=== PATIENT | male | born 1935 | race Caucasian/White ===

== ENCOUNTER → 2017-02-17 | Outpatient (CLI) | payer OTHER ==
[2017-02-17 17:52] LABS: BASO % 0.5 %; BASO ABS # 0.06 K/uL (0-0.2); COMPLETE YES; HEMATOCRIT 36.2 % (42-52); IG% 0.3 %; LYMPH % 17.7 %; LYMPH ABS # 1.98 K/uL (1.2-3.4); MEAN CELL VOLUME 95.3 fL (80-100); MEAN CORPUSCULAR HEMOGLOBIN 31.3 pg (25-34); MEAN CORPUSCULAR HGB CONC 32.9 g/dl (32-36); MONO % 7.9 %; NEUT % 69.6 %; PLATELET COUNT 172 K/uL (130-400); WHITE BLOOD COUNT 11.21 K/uL (4.8-10.8)
[2017-02-17 18:03] LABS: ALT/SGPT 15 U/L (12-78); BLOOD UREA NITROGEN 59 mg/dl (7-18); BUN/CREATININE RATIO 22.6 (10-20); CALCIUM 8.4 mg/dl (8.5-10.1); CARBON DIOXIDE 26 mmol/L (21-32); CHLORIDE 107 mmol/L (98-107); GLUCOSE 97 mg/dl (70-99); POTASSIUM 5.7 mmol/L (3.5-5.1); SODIUM 139 mmol/L (136-145)
[2017-02-17 18:06] LABS: ALKALINE PHOSPHATASE 133 U/L (45-117); AST/SGOT 19 U/L (15-37)
--- NOTE | 2017-02-25 09:21 | CODING QUERY MEDICAL NECESSITY ---
CQSUPPORTING DIAGNOSIS NEEDED A supporting diagnosis is required for the test/procedure performed on this patient in order for us to be reimbursed by the patient's insurance. Please provide a supporting diagnosis for the following test/procedure listed below next to the test name along with your signature. *If there is no additional diagnosis for this patient that would support the following test/procedure please document that below next to the test/procedure. Test(s)/Procedure(s) that require a supporting diagnosis: DOS 02/17/17 VITAMIN D TEST Provider Signature: Date: Thank you Nenita Haley Health Information Management Once completed, please kindly fax back to [phone] For questions please call [phone]
== END | disposition home or self-care (01) ==
LOC: C.LABPVFM 15:31
PROVIDERS: ATTEND Family Medicine
DX: R53.83 Other fatigue (principal); N28.9 Disorder of kidney and ureter, unspecified; E55.9 Vitamin D deficiency, unspecified

== ENCOUNTER → 2017-02-23 | Outpatient (CLI) | payer OTHER ==
--- NOTE | 2017-02-23 14:02 | DIAGNOSTIC IMAGING REPORT ---
ULTRASOUND KIDNEYS AND BLADDER CLINICAL HISTORY: Acute renal insufficiency. COMPARISON STUDY: Abdominal CT dated 05/22/2016. TECHNIQUE: Real-time, grayscale, and color flow sonography of the kidneys and bladder is performed. Images are reviewed in the transverse and longitudinal planes. FINDINGS: Kidneys: The kidneys are atrophic. The right kidney measures 9.6 cm in length and the left kidney measures 8.7 cm in length. There is no hydronephrosis. No shadowing renal calculi are identified. There are bilateral renal cysts. The largest is on the right and measures up to 3.5 cm. There is no sonographic evidence of contour deforming renal mass lesion. No perinephric fluid is identified. Bladder: The bladder is normal in appearance. Bilateral ureteral jets were seen. An abdominal aneurysm is identified and measures up to 5.5 cm. This is likely unchanged from the 05/22/2016 CT scan. IMPRESSION: 1. The kidneys are atrophic and without hydronephrosis. 2. The bladder is normal as visualized. 3. A 5.5 cm infrarenal abdominal aortic aneurysm is again noted. Electronically signed by: José Garner M.D. 02/23/2017 2:00 PM Dictated Date/Time: 02/23/2017 1:47 PM
== END | disposition home or self-care (01) ==
LOC: C.ULTR 13:11
PROVIDERS: ATTEND Family Medicine
DX: R79.89 Other specified abnormal findings of blood chemistry (principal); N26.1 Atrophy of kidney (terminal); I71.4 Abdominal aortic aneurysm, without rupture

== ENCOUNTER → 2017-04-23 | Outpatient (CLI) | payer OTHER ==
[2017-04-23 18:51] LABS: BLOOD UREA NITROGEN 36 mg/dl (7-18); BUN/CREATININE RATIO 18.2 (10-20); CALCIUM 8.7 mg/dl (8.5-10.1); CARBON DIOXIDE 23 mmol/L (21-32); CHLORIDE 112 mmol/L (98-107); GLUCOSE 106 mg/dl (70-99); MAGNESIUM 2.1 mg/dl (1.8-2.4); SODIUM 143 mmol/L (136-145)
[2017-04-23 18:52] LABS: PHOSPHORUS 3.2 mg/dl (2.5-4.9)
== END | disposition home or self-care (01) ==
LOC: C.LABPVFM 15:44
PROVIDERS: ATTEND Internal Medicine Nephrology
DX: N28.9 Disorder of kidney and ureter, unspecified (principal)

== ENCOUNTER → 2017-06-24 | Outpatient (CLI) | payer OTHER ==
[2017-06-24 13:35] LABS: BLOOD UREA NITROGEN 37 mg/dl (7-18); BUN/CREATININE RATIO 17.7 (10-20); CALCIUM 8.6 mg/dl (8.5-10.1); CARBON DIOXIDE 26 mmol/L (21-32); CHLORIDE 109 mmol/L (98-107); GLUCOSE 102 mg/dl (70-99); MAGNESIUM 2.2 mg/dl (1.8-2.4); POTASSIUM 4.7 mmol/L (3.5-5.1); SODIUM 140 mmol/L (136-145)
[2017-06-24 13:36] LABS: PHOSPHORUS 2.9 mg/dl (2.5-4.9)
== END | disposition home or self-care (01) ==
LOC: C.LAB1850 11:57
PROVIDERS: ATTEND Internal Medicine Nephrology
DX: I10 Essential (primary) hypertension (principal)

== ENCOUNTER → 2017-08-31 | Outpatient (CLI) | payer OTHER ==
[2017-08-31 14:12] LABS: ALB/GLOB RATIO 0.8 (0.9-2); ALKALINE PHOSPHATASE 136 U/L (45-117); ALT/SGPT 15 U/L (12-78); AST/SGOT 19 U/L (15-37); BLOOD UREA NITROGEN 44 mg/dl (7-18); CALCIUM 8.8 mg/dl (8.5-10.1); CARBON DIOXIDE 24 mmol/L (21-32); CHLORIDE 108 mmol/L (98-107); CREATININE 2.29 mg/dl (0.60-1.40); GLUCOSE 109 mg/dl (70-99); POTASSIUM 6.1 mmol/L (3.5-5.1); SODIUM 139 mmol/L (136-145)
== END | disposition home or self-care (01) ==
LOC: C.LABPVFM 09:04
PROVIDERS: ATTEND Family Medicine
DX: I71.4 Abdominal aortic aneurysm, without rupture (principal); I10 Essential (primary) hypertension; Z86.39 Personal history of other endocrine, nutritional and metabolic disease; E55.9 Vitamin D deficiency, unspecified; N18.4 Chronic kidney disease, stage 4 (severe)

== ENCOUNTER → 2017-09-02 | Outpatient (CLI) | payer OTHER ==
[2017-09-02 13:38] LABS: BLOOD UREA NITROGEN 44 mg/dl (7-18); BUN/CREATININE RATIO 17.8 (10-20); CARBON DIOXIDE 24 mmol/L (21-32); CHLORIDE 107 mmol/L (98-107); CREATININE 2.47 mg/dl (0.60-1.40); GLUCOSE 87 mg/dl (70-99); POTASSIUM 5.6 mmol/L (3.5-5.1); SODIUM 136 mmol/L (136-145)
== END | disposition home or self-care (01) ==
LOC: C.LABPVFM 11:28
PROVIDERS: ATTEND Internal Medicine Nephrology
DX: E87.5 Hyperkalemia (principal)

== ENCOUNTER → 2017-09-14 | Outpatient (CLI) | payer OTHER ==
[2017-09-14 13:15] LABS: BLOOD UREA NITROGEN 50 mg/dl (7-18); BUN/CREATININE RATIO 19.2 (10-20); CARBON DIOXIDE 24 mmol/L (21-32); CHLORIDE 108 mmol/L (98-107); CREATININE 2.62 mg/dl (0.60-1.40); GLUCOSE 145 mg/dl (70-99); POTASSIUM 4.7 mmol/L (3.5-5.1); SODIUM 138 mmol/L (136-145)
== END | disposition home or self-care (01) ==
LOC: C.LABPVFM 08:41
PROVIDERS: ATTEND Internal Medicine Nephrology
DX: I10 Essential (primary) hypertension (principal); E87.5 Hyperkalemia

== ENCOUNTER → 2017-10-13 | Outpatient (CLI) | payer OTHER ==
[2017-10-13 13:00] LABS: BASO % 0.8 %; BASO ABS # 0.07 K/uL (0-0.2); COMPLETE YES; HEMATOCRIT 38.6 % (42-52); IG% 0.5 %; LYMPH % 20.3 %; LYMPH ABS # 1.72 K/uL (1.2-3.4); MEAN CELL VOLUME 96.3 fL (80-100); MEAN CORPUSCULAR HEMOGLOBIN 30.9 pg (25-34); MEAN CORPUSCULAR HGB CONC 32.1 g/dl (32-36); MEAN PLATELET VOLUME 9.9 fL (7.4-10.4); MONO % 9.1 %; NEUT % 66.3 %; PLATELET COUNT 162 K/uL (130-400); RED BLOOD COUNT 4.01 M/uL (4.7-6.1); WHITE BLOOD COUNT 8.47 K/uL (4.8-10.8)
[2017-10-13 13:16] LABS: BLOOD UREA NITROGEN 35 mg/dl (7-18); BUN/CREATININE RATIO 15.6 (10-20); CALCIUM 8.7 mg/dl (8.5-10.1); CARBON DIOXIDE 27 mmol/L (21-32); CHLORIDE 106 mmol/L (98-107); CREATININE 2.26 mg/dl (0.60-1.40); GLUCOSE 122 mg/dl (70-99); MAGNESIUM 2.2 mg/dl (1.8-2.4); PHOSPHORUS 2.9 mg/dl (2.5-4.9); POTASSIUM 4.7 mmol/L (3.5-5.1); SODIUM 138 mmol/L (136-145)
== END | disposition home or self-care (01) ==
LOC: C.LABPVFM 10:00
PROVIDERS: ATTEND Internal Medicine Nephrology
DX: N18.4 Chronic kidney disease, stage 4 (severe) (principal)

== ENCOUNTER → 2017-10-16 | Outpatient (CLI) | payer OTHER ==
[2017-10-16 18:29] LABS: URINE PROTIEN/CREAT RATIO 0.3 (0-0.2); URINE TOTAL PROTEIN 35.4 mg/dl (0-11.9)
== END | disposition home or self-care (01) ==
LOC: C.LABPVFM 09:22
PROVIDERS: ATTEND Internal Medicine Nephrology
DX: N18.4 Chronic kidney disease, stage 4 (severe) (principal)

== ENCOUNTER → 2018-02-25 | Outpatient (CLI) | payer OTHER ==
[2018-02-25 12:29] LABS: BASO % 0.7 %; BASO ABS # 0.06 K/uL (0-0.2); EOS % 2.3 %; EOS ABS # 0.21 K/uL (0-0.5); HEMATOCRIT 41.6 % (42-52); HEMOGLOBIN 13.5 g/dL (14.0-18.0); IG# 0.04 K/uL (0.00-0.02); LYMPH % 22.2 %; LYMPH ABS # 2.03 K/uL (1.2-3.4); MEAN CELL VOLUME 94.1 fL (80-100); MEAN CORPUSCULAR HEMOGLOBIN 30.5 pg (25-34); MEAN CORPUSCULAR HGB CONC 32.5 g/dl (32-36); MONO ABS # 0.82 K/uL (0.11-0.59); NEUT % 65.4 %; NEUT ABS # 5.99 K/uL (1.4-6.5); PLATELET COUNT 199 K/uL (130-400); RED CELL DISTRIBUTION WIDTH CV 14.5 % (11.5-14.5); RED CELL DISTRIBUTION WIDTH SD 50.1 fL (36.4-46.3); WHITE BLOOD COUNT 9.15 K/uL (4.8-10.8)
[2018-02-25 18:12] LABS: ALBUMIN 3.7 gm/dl (3.4-5.0); BLOOD UREA NITROGEN 27 mg/dl (7-18); CALCIUM 8.9 mg/dl (8.5-10.1); CARBON DIOXIDE 25 mmol/L (21-32); CREATININE 2.19 mg/dl (0.60-1.40); GLUCOSE 100 mg/dl (70-99); PHOSPHORUS 3.6 mg/dl (2.5-4.9); SODIUM 134 mmol/L (136-145)
== END | disposition home or self-care (01) ==
LOC: C.LABPVFM 11:33
PROVIDERS: ATTEND Internal Medicine Nephrology
DX: N18.4 Chronic kidney disease, stage 4 (severe) (principal)

== ENCOUNTER 2018-12-27 16:09 | Inpatient (IN) ==
[2018-12-27] MEDS ORDERED: MoRPHine SULFATE 2 MG/ML CARP IV PRN (17:15)
[2018-12-27] MEDS ORDERED: DIPHTHERIA/TETANUS/PERTUSSIS 0.5 ML SYR/VIAL IM ONE (17:16)
[2018-12-27] MEDS ORDERED: LIDOCAINE HCL 1% 20 ML VIAL INFIL ONE (17:22)
[2018-12-27 17:28] LABS: Basophils # (auto) 0.03 K/uL (0-0.2); Basophils % (auto) 0.1 %; Eosinophils # (auto) 0.01 K/uL (0-0.5); Hematocrit (blood only) 38.4 % (42-52); Hemoglobin 12.6 g/dL (14.0-18.0); Immature Granulocytes # (auto) 0.24 K/uL (0.00-0.02); Immature Granulocytes % (auto) 1.1 %; Lymphocytes # (auto) 0.98 K/uL (1.2-3.4); Lymphocytes % (auto) 4.7 %; Mean Corpuscular Hgb Conc 32.8 g/dL (32-36); Mean Corpuscular Volume 90.6 fL (80-100); Mean Platelet Volume 8.7 fL (7.4-10.4); Monocytes # (auto) 1.21 K/uL (0.11-0.59); Monocytes % (auto) 5.8 %; Neutrophils # (auto) 18.48 K/uL (1.4-6.5); Neutrophils % (auto) 88.3 %; Platelet Count 238 K/uL (130-400); RDW Coefficient of Variation 14.1 % (11.5-14.5); Red Blood Count 4.24 M/uL (4.7-6.1); White Blood Count 20.95 K/uL (4.8-10.8)
[2018-12-27 17:34] LABS: BUN Creatinine Ratio 17.1 (10-20); Calcium 8.5 mg/dl (8.5-10.1); Creatinine Clr Calc Pharmacy 20.9 ml/min; Est GFR (African American) 26.2; Est GFR (Non-African American) 22.6; Potassium 4.8 mmol/L (3.5-5.1)
[2018-12-27 17:49] LABS: INR 1.1 (0.9-1.1); Partial Thromboplastin Ratio 0.9; Partial Thromboplastin Time 24.1 Seconds (21.0-31.0); Prothrombin Time 11.1 Seconds (9.0-12.0)
--- NOTE | 2018-12-27 18:03 | CT Scan Report ---
CT OF THE CERVICAL SPINE CLINICAL HISTORY: Neck pain status post trauma COMPARISON STUDY: No previous studies for comparison. CT DOSE: TECHNIQUE: CT scan of the cervical spine was performed from the skull base to the thoracic inlet. Ayah ges are reviewed in the axial, sagittal, and coronal planes. IV contrast was not administered for thi s examination. A dose lowering technique was utilized adhering to the principles of ALARA. FINDINGS: The visualized portions of the lung apices reveal no evidence of pneumothorax. 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 There is a multinodular thyroid gland. There is a small sphenoid sinus air-fluid level. There is a small left mastoid effusion. The prevertebral soft tissues are normal. No fractures or subluxations are visualized. There are multilevel degenerative changes IMPRESSION: No evidence of acute fracture or traumatic subluxation. Electronically signed by: Bart Fischer M.D. 12/27/2018 6:01 PM
--- NOTE | 2018-12-27 18:07 | CT Scan Report ---
CT OF THE HEAD WITHOUT CONTRAST CLINICAL HISTORY: Fall. COMPARISON STUDY: No previous studies for comparison. CT DOSE: 1102.48 mGy.cm TECHNIQUE: Helical axial images of the head were obtained without IV contrast. Automated exposure con trol was utilized for the study. A dose lowering technique was utilized adhering to the principles o f ALARA. FINDINGS: No acute intracranial hemorrhage is present. Ventricular system is normal. The basilar cist erns are patent. 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 There is a small extra-axial CSF attenuation right subdural collection without significant mass effect. A foreh ead contusion is present. There is no calvarial fracture. Maxillofacial CT will be reported separatel y. Mild sinus mucosal thickening is noted. IMPRESSION: 1. No acute intracranial hemorrhage. 2. 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 No significant mass effect. This finding is of doubtful significance. 3. No calvarial fracture. Forehead contusion. Electronically signed by: Sam Styles M.D. 12/27/2018 6:05 PM
--- NOTE | 2018-12-27 18:12 | CT Scan Report ---
MAXILLOFACIAL CT WITHOUT CONTRAST CLINICAL HISTORY: Fall. COMPARISON STUDY: None. TECHNIQUE: A maxillofacial CT was performed without IV contrast. Coronal and sagittal reformats were viewed. Automated exposure control was utilized for the study. A dose lowering technique was utiliz ed adhering to the principles of ALARA. FINDINGS: Globes are intact. There is no retrobulbar hematoma. There is a forehead contusion. No fron bety bone fracture is identified. Alignment of the temporomandibular joints is anatomic. There is mild sinus mucosal thickening and small air-fluid levels within the sphenoid sinuses. There are postopera tive findings within the sinuses. Slight deformity of the left nasal bone is age indeterminate. No di splaced facial fracture is identified. IMPRESSION: 1. Age indeterminate nondisplaced left nasal bone fracture. 2. Forehead contusion. No frontal bone fracture. Electronically signed by: Sam Styles M.D. 12/27/2018 6:10 PM
--- NOTE | 2018-12-27 18:49 | Emergency Department Note ---
ED Visit Note Patient was seen and evaluated by Dr. Aguilar. I was asked to perform primary wound closure. Risks and benefits of performing primary wound closure versus no repair were discussed with the patient who verbalizes understanding. Verbal consent was obtained prior to performing the procedure. 4 cc of 1% buffered lidocaine was used to anesthetize the 3 cm forehead laceration. The wound was cleansed and prepped in the typical sterile fashion utilizing normal saline and Betadine. The wound was sterilely draped. Once proper anesthetization was established, the wound was further examined and demonstrated evidence of active bleeding with small vessel injury. The wound was copiously irrigated with normal saline and Betadine. Wound was closed utilizing 7, 50 simple interrupted nylon sutures with the wound edges being well approximated. Patient tolerated the procedure well. No complications were met. The wound was cleansed and dressed with a Bacitracin dressing. Please refer to further documentation regarding his stay .
--- NOTE | 2018-12-27 19:56 | XRay Report ---
XR chest 1V portable CLINICAL HISTORY: hip fx PREOPERATIVE CHEST COMPARISON STUDY: 05/21/2016 FINDINGS: The heart is at the upper limits of normal in size. There is no lobar consolidation. There is mild interstitial thickening. There is a stable 4 cm pleural-based opacity within the left upper l jumana zone consistent with patient's known pleural-based lipoma. Since the prior study, the patient dev eloped a bilobed spiculated right apical opacity measuring 3.5 cm. Neoplasm is the diagnosis of exclu delilah. A chest CT is recommended in follow-up.[ IMPRESSION: Bilobed 3.5 cm spiculated right apical opacity. Neoplasm is the diagnosis of exclusion. A chest CT and pulmonary consultation are recommended in follow-up Electronically signed by: Bart Fischer M.D. 12/27/2018 7:55 PM
--- NOTE | 2018-12-27 19:58 | XRay Report ---
XR hip LT 2-3V w pelvis CLINICAL HISTORY: Fall. Evaluate for fracture. COMPARISON: CT of the abdomen and pelvis May 22, 2016. FINDINGS: Note is made of an acute displaced impacted left femoral neck fracture. There is also a mar spected fracture through the left superior pubic ramus which is likely acute. No proximal right femor al fracture is noted. Sacroiliac joints are intact. Endovascular aortoiliac stent graft is incidental ly noted. IMPRESSION: 1. Acute displaced impacted left femoral neck fracture. 2. Probable acute mildly displaced fracture of the left superior pubic ramus. Electronically signed by: Sam Styles M.D. 12/27/2018 7:57 PM
--- NOTE | 2018-12-27 19:58 | XRay Report ---
XR femur LT (4 views) CLINICAL HISTORY: Left femur pain status post trauma COMPARISON: None DISCUSSION: 4 views are provided for interpretation. There is acute displaced subcapital left hip fra cture. No additional femoral fractures are visualized. IMPRESSION: Acute displaced subcapital left hip fracture Electronically signed by: Bart Fischer M.D. 12/27/2018 7:57 PM
--- NOTE | 2018-12-27 20:37 | Emergency Department Note ---
Entered by Herson Farrell acting as a scribe for Drew Aguilar MD History of Present Illness General Chief complaint: Hip Pain Stated complaint: FALL, HIP PAIN Source: patient History of Present Illness Provider complaint: hip pain Onset (ago): day(s) (today) Location: hip and left Pain Consistency: + other (episode) Maximum Pain Intensity: 0 Quality: + other (pain) Associated symptoms: + denies other symptoms (abdominal pain, loss of sensation in his toes and feet) and + other (forehead laceration); no headaches The patient is an 83 year old male who presents to the Emergency Room with complaints of left hip pain after slipping and falling on ice today. The patient also reports that he hit his head while falling. He denies any headaches or abdominal pain, and states that he still has feeling in his feet and toes. The patient reports a history of high blood pressure, diabetes, heart attacks, and an aortic aneurysm which he had repaired. The patient does not remember when his last tetanus shot was. He denies any neck pain other than from the collar that was placed on him. Home Medications Home Medications Medication Instructions Recorded Confirmed Type amlodipine 5 mg PO .QPM/UD PRN 12/27/18 12/27/18 History metoprolol succinate 25 mg PO QAM 12/27/18 12/27/18 History Allergies Allergy/AdvReac Type Severity Reaction Status Date / Time No Known Allergies Allergy Verified 12/27/18 19:27 Past Med/Surg History Medical History Aortic aneurysm (Resolved) COPD (chronic obstructive pulmonary disease) Diabetes HTN (hypertension) Heart attack Social History Feels Safe at Home: Yes Smoking Status: Former smoker Preferred Language: Estonian Review of Systems See HPI for pertinent positives & negatives. and A total of 10 systems reviewed and were otherwise negative Physical Exam Vital Signs Vital Signs - 24 hr 12/27/18 16:16 12/27/18 16:26 12/27/18 17:03 Temperature 36.9 C Temperature Source Oral Sepsis Recent Fever Within 48 Hours No Sepsis New/Unexplained Change in Mental Status No Sepsis Action Taken by Nursing No Action Required Pulse Rate 103 H 109 H 100 H Pulse Rate [Apical] Pulse Rhythm Regular Pulse Rhythm [Apical] Pulse Strength Normal Pulse Strength [Apical] Respiratory Rate 20 16 20 Respiratory Effort / Characteristics Non-Labored Respiratory Depth Normal Respiratory Pattern Regular Blood Pressure 141/83 H 141/83 H Blood Pressure [Right Arm] Blood Pressure Mean 102 102 Blood Pressure Mean [Right Arm] Blood Pressure Position Lying Blood Pressure Position [Right Arm] Pulse Oximetry 95 84 L 95 Oxygen Delivery Method Room Air Nasal Cannula Oxygen Flow Rate 2 12/27/18 17:30 12/27/18 18:02 12/27/18 18:03 Temperature Temperature Source Sepsis Recent Fever Within 48 Hours Sepsis New/Unexplained Change in Mental Status Sepsis Action Taken by Nursing Pulse Rate 105 H 126 H Pulse Rate [Apical] Pulse Rhythm Pulse Rhythm [Apical] Pulse Strength Pulse Strength [Apical] Respiratory Rate 19 19 Respiratory Effort / Characteristics Respiratory Depth Respiratory Pattern Blood Pressure 156/76 H Blood Pressure [Right Arm] Blood Pressure Mean 102 Blood Pressure Mean [Right Arm] Blood Pressure Position Blood Pressure Position [Right Arm] Pulse Oximetry 95 96 95 Oxygen Delivery Method Oxygen Flow Rate 12/27/18 18:05 12/27/18 18:30 12/27/18 18:31 Temperature Temperature Source Sepsis Recent Fever Within 48 Hours Sepsis New/Unexplained Change in Mental Status Sepsis Action Taken by Nursing Pulse Rate 104 H 113 H Pulse Rate [Apical] 106 H Pulse Rhythm Pulse Rhythm [Apical] Regular Pulse Strength Pulse Strength [Apical] Normal Respiratory Rate 16 20 22 Respiratory Effort / Characteristics Non-Labored Respiratory Depth Normal Respiratory Pattern Blood Pressure 153/89 H Blood Pressure [Right Arm] 156/76 H Blood Pressure Mean 110 Blood Pressure Mean [Right Arm] 102 Blood Pressure Position Blood Pressure Position [Right Arm] Lying Pulse Oximetry 96 98 95 Oxygen Delivery Method Nasal Cannula Oxygen Flow Rate 2 12/27/18 19:00 12/27/18 19:30 12/27/18 19:31 Temperature Temperature Source Sepsis Recent Fever Within 48 Hours Sepsis New/Unexplained Change in Mental Status Sepsis Action Taken by Nursing Pulse Rate 105 H 110 H 110 H Pulse Rate [Apical] Pulse Rhythm Pulse Rhythm [Apical] Pulse Strength Pulse Strength [Apical] Respiratory Rate 22 21 19 Respiratory Effort / Characteristics Respiratory Depth Respiratory Pattern Blood Pressure 158/86 H 154/69 H Blood Pressure [Right Arm] Blood Pressure Mean 110 97 Blood Pressure Mean [Right Arm] Blood Pressure Position Blood Pressure Position [Right Arm] Pulse Oximetry 95 91 92 Oxygen Delivery Method Oxygen Flow Rate Constitutional: Vital signs reviewed. Head: 3 cm laceration to forehead. Swelling and ecchymosis to left orbit without bony tenderness. Eyes: Pupils are equal round reactive to light. Conjunctiva are noninjected. ENT: Pharynx is clear without erythema or exudate. Mucous membranes are moist. Neck Neck is in cervical collar. Respiratory: Clear to auscultation bilaterally. Breath sounds are equal bilaterally. Cardiovascular: Regular rate and rhythm. No rubs or gallops. GI: Soft, nondistended and nontender. Bowel sounds are present. Musculoskeletal: No peripheral edema. Tenderness to left hip and proximal femur with shortening of the left leg. Normal distal pulse. Integumentary: No cyanosis. Neurological: The patient is awake and alert. No focal deficits. Psychiatric: Normal affect. Course 1709: Past medical records reviewed. The patient was evaluated in room A4, and a complete history and physical examination were performed. 1928: I discussed the test results with the patient. He is requesting more pain medication. He is agreeable with the treatment plan. 1930: I reviewed the patient's case with Dr. Mcguire, [facility]. He will evaluate the patient for further management. 2002: I spoke with Dr. Mcguire, [facility], about the patient's chest x-ray. He said he will order a CT of the chest. Consultations Consultation #1: Dr. Mcguire [facility]. Time: 19:31 Consultation #2: Dr. Mcguire [facility]. Time: 20:03 Administered Medications Discontinued Medications Diphtheria/Pertussis/Tetanus Vacc (Adacel) 0.5 ml IM .ONCE ONE Stop: 12/27/18 17:17 Last Admin: 12/27/18 18:03 Dose: 0.5 ml Lidocaine HCl (Xylocaine 1% (Local)) 10 ml INFIL NOW ONE Stop: 12/27/18 17:23 Last Admin: 12/27/18 18:04 Dose: 10 ml Medical Decision Making Differential Diagnosis Differential: Hip fracture, pelvic fracture, ICH, concussion, facial fracture Medical Records Attestation: I reviewed the patient's medical records. Home Medications Current Medication List: was personally reviewed by me Laboratory Data Attestation: I reviewed the patient's lab results. Result diagrams: 12/27/18 16:55 12/27/18 16:55 Lab Results 12/27/18 12/27/18 12/27/18 Range/Units 16:55 16:55 16:55 WBC 20.95 H (4.8-10.8) K/uL RBC 4.24 L (4.7-6.1) M/uL Hgb 12.6 L (14.0-18.0) g/dL Hct 38.4 L (42-52) % MCV 90.6 (80-100) fL MCH 29.7 (25-34) pg MCHC 32.8 (32-36) g/dL RDW Std Deviation 46.0 (36.4-46.3) fL RDW Coeff of Cipriano 14.1 (11.5-14.5) % Plt Count 238 (130-400) K/uL MPV 8.7 (7.4-10.4) fL Immature Gran % (Auto) 1.1 % Neut % (Auto) 88.3 % Lymph % (Auto) 4.7 % [place] % (Auto) 5.8 % Eos % (Auto) 0.0 % Baso % (Auto) 0.1 % Immature Gran # (Auto) 0.24 H (0.00-0.02) K/uL Neut # (Auto) 18.48 H (1.4-6.5) K/uL Lymph # (Auto) 0.98 L (1.2-3.4) K/uL [place] # (Auto) 1.21 H (0.11-0.59) K/uL Eos # (Auto) 0.01 (0-0.5) K/uL Baso # (Auto) 0.03 (0-0.2) K/uL PT 11.1 (9.0-12.0) Seconds INR 1.1 (0.9-1.1) APTT 24.1 (21.0-31.0) Seconds PTT Ratio 0.9 Sodium 136 (136-145) mmol/L Potassium 4.8 (3.5-5.1) mmol/L Chloride 102 (98-107) mmol/L Carbon Dioxide 26 (21-32) mmol/L Anion Gap 8.0 (3-11) BUN 43 H (7-18) mg/dl Creatinine 2.50 H (0.6-1.4) mg/dl Est Cr Clr Drug Dosing 20.9 ml/min Est GFR ( Amer) 26.2 Est GFR (Non-Af Amer) 22.6 BUN/Creatinine Ratio 17.1 (10-20) Glucose 108 H (70-99) mg/dl Calcium 8.5 (8.5-10.1) mg/dl Blood Type Antibody Screen 12/27/18 Range/Units 18:40 WBC (4.8-10.8) K/uL RBC (4.7-6.1) M/uL Hgb (14.0-18.0) g/dL Hct (42-52) % MCV (80-100) fL MCH (25-34) pg MCHC (32-36) g/dL RDW Std Deviation (36.4-46.3) fL RDW Coeff of Cirpiano (11.5-14.5) % Plt Count (130-400) K/uL MPV (7.4-10.4) fL Immature Gran % (Auto) % Neut % (Auto) % Lymph % (Auto) % [place] % (Auto) % Eos % (Auto) % Baso % (Auto) % Immature Gran # (Auto) (0.00-0.02) K/uL Neut # (Auto) (1.4-6.5) K/uL Lymph # (Auto) (1.2-3.4) K/uL [place] # (Auto) (0.11-0.59) K/uL Eos # (Auto) (0-0.5) K/uL Baso # (Auto) (0-0.2) K/uL PT (9.0-12.0) Seconds INR (0.9-1.1) APTT (21.0-31.0) Seconds PTT Ratio Sodium (136-145) mmol/L Potassium (3.5-5.1) mmol/L Chloride (98-107) mmol/L Carbon Dioxide (21-32) mmol/L Anion Gap (3-11) BUN (7-18) mg/dl Creatinine (0.6-1.4) mg/dl Est Cr Clr Drug Dosing ml/min Est GFR ( Amer) Est GFR (Non-Af Amer) BUN/Creatinine Ratio (10-20) Glucose (70-99) mg/dl Calcium (8.5-10.1) mg/dl Blood Type Cancelled Antibody Screen Cancelled Imaging Data Radiologist's Impression: Radiology results as stated below per my review and the radiologist's interpretation: CT OF THE HEAD WITHOUT CONTRAST CLINICAL HISTORY: Fall. COMPARISON STUDY: No previous studies for comparison. CT DOSE: 1102.48 mGy.cm TECHNIQUE: Helical axial images of the head were obtained without IV contrast. Automated exposure control was utilized for the study. A dose lowering technique was utilized adhering to the principles of ALARA. FINDINGS: No acute intracranial hemorrhage is present. Ventricular system is normal. The basilar cisterns are patent. 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 There is a small extra-axial CSF attenuation right subdural collection without significant mass effect. A forehead contusion is present. There is no calvarial fracture. Maxillofacial CT will be reported separately. Mild sinus mucosal thickening is noted. IMPRESSION: 1. No acute intracranial hemorrhage. 2. 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 No significant mass effect. This finding is of doubtful significance. 3. No calvarial fracture. Forehead contusion. Electronically signed by: Sam Styles M.D. 12/27/2018 6:[address] WITHOUT CONTRAST CLINICAL HISTORY: Fall. COMPARISON STUDY: None. TECHNIQUE: A maxillofacial CT was performed without IV contrast. Coronal and sagittal reformats were viewed. Automated exposure control was utilized for the study. A dose lowering technique was utilized adhering to the principles of ALARA. FINDINGS: Globes are intact. There is no retrobulbar hematoma. There is a forehead contusion. No frontal bone fracture is identified. Alignment of the temporomandibular joints is anatomic. There is mild sinus mucosal thickening and small air-fluid levels within the sphenoid sinuses. There are postoperative findings within the sinuses. Slight deformity of the left nasal bone is age indeterminate. No displaced facial fracture is identified. IMPRESSION: 1. Age indeterminate nondisplaced left nasal bone fracture. 2. Forehead contusion. No frontal bone fracture. Electronically signed by: Sam Styles M.D. 12/27/2018 6:[address] OF THE CERVICAL SPINE CLINICAL HISTORY: Neck pain status post trauma COMPARISON STUDY: No previous studies for comparison. CT DOSE: TECHNIQUE: CT scan of the cervical spine was performed from the skull base to the thoracic inlet. Images are reviewed in the axial, sagittal, and coronal planes. IV contrast was not administered for this examination. A dose lowering technique was utilized adhering to the principles of ALARA. FINDINGS: The visualized portions of the lung apices reveal no evidence of pneumothorax. There is pulmonary emphysema. There is a multinodular thyroid gland. There is a small sphenoid sinus air-fluid level. There is a small left mastoid effusion. The prevertebral soft tissues are normal. No fractures or subluxations are visualized. There are multilevel degenerative changes IMPRESSION: No evidence of acute fracture or traumatic subluxation. Electronically signed by: Bart Fischer M.D. 12/27/2018 6:01 PM XR hip LT 2-3V w pelvis CLINICAL HISTORY: Fall. Evaluate for fracture. COMPARISON: CT of the abdomen and pelvis May 22, 2016. FINDINGS: Note is made of an acute displaced impacted left femoral neck fracture. There is also a suspected fracture through the left superior pubic ramus which is likely acute. No proximal right femoral fracture is noted. Sacroiliac joints are intact. Endovascular aortoiliac stent graft is incidentally noted. IMPRESSION: 1. Acute displaced impacted left femoral neck fracture. 2. Probable acute mildly displaced fracture of the left superior pubic ramus. Electronically signed by: Sam Styles M.D. 12/27/2018 7:57 PM XR femur LT (4 views) CLINICAL HISTORY: Left femur pain status post trauma COMPARISON: None DISCUSSION: 4 views are provided for interpretation. There is acute displaced subcapital left hip fracture. No additional femoral fractures are visualized. IMPRESSION: Acute displaced subcapital left hip fracture Electronically signed by: Bart Fischer M.D. 12/27/2018 7:57 PM XR chest 1V portable CLINICAL HISTORY: hip fx PREOPERATIVE CHEST COMPARISON STUDY: 05/21/2016 FINDINGS: The heart is at the upper limits of normal in size. There is no lobar consolidation. There is mild interstitial thickening. There is a stable 4 cm pleural-based opacity within the left upper lung zone consistent with patient's known pleural-based lipoma. Since the prior study, the patient developed a bilobed spiculated right apical opacity measuring 3.5 cm. Neoplasm is the diagnosis of exclusion. A chest CT is recommended in follow-up.[ IMPRESSION: Bilobed 3.5 cm spiculated right apical opacity. Neoplasm is the diagnosis of exclusion. A chest CT and pulmonary consultation are recommended in follow-up Electronically signed by: Bart Fischer M.D. 12/27/2018 7:55 PM ECG Data Attestation: I personally reviewed and interpreted this ECG as follows: Indication: other (presumed fracture) Rate (beats per minute): 99 Rhythm: sinus rhythm Findings: no PVC and no ST elevation Blood Pressure Blood Pressure Findings: Elevated blood pressure Blood Pressure Disposition: Referred to patients primary care provider Head Trauma GCS Score: 15 MDM Narrative I did perform a limited focused review of portions of the patient's old chart on the electronic medical record. The patient has had no recent pertinent visits to this hospital. I did evaluate the patient as noted above. The patient presents after mechanical fall with hip pain. He has signs of a hip fracture. He also has a head injury with ecchymosis to his face. IV access was established. 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 I did treat the patient with IV morphine and Zofran. He was also given a DTaP immunization. His facial laceration was repaired by BREANNA Rodriguez. I did order and personally review the patient's 12-lead EKG and chest x-ray as described above. Chest x- ray demonstrates concern for neoplasm. Twelve-lead EKG is unremarkable. I did order and review the patient's blood work as noted in the electronic medical record. He has significant leukocytosis. He denies any fever. This will be repeated in the hospital. He has chronic kidney disease. I did order a CT of the head, facial bones and cervical spine. I did review the images myself as well as the radiology report as described above. He has a subdural hygroma but no intracranial hemorrhage. He also has a nasal fracture. His collar was removed. He was informed of his test results. I did discuss the case with the hospitalist and case finisher. Impression & Plan Closed left hip fracture, Acute head injury, Fall, Facial laceration, Leukocytosis, Fracture, nasal Discharge Plan Visit Data Chief Complaint: Hip Pain Stated Complaint: FALL, HIP PAIN ED Provider: Drew Aguilar Discharge Problem: Closed left hip fracture, Acute head injury, Fall, Facial laceration, Leukocytosis, Fracture, nasal Forms Stand Alone Forms: My [facility] Prescriptions Prescriptions: No Action metoprolol succinate 25 mg tablet extended release 24 hr 25 mg PO QAM RF: 0 amlodipine 5 mg tablet 5 mg PO .QPM/UD PRN (Reason: Hypertension) RF: 0 The scribe's documentation has been prepared under my direction and personally reviewed by me in its entirety. I confirm that the note above accurately reflects all work, treatment, procedures, and medical decision making performed by me.
--- NOTE | 2018-12-27 20:46 | History & Physical Report ---
Date of Service December 27, 2018 Assessment & Plan (1) Closed left hip fracture: Left hip fracture/Acute head injury -Consult ortho surgery -morphine 4mg q2h prn -considering heavy bleeding from facial lac, will defer DVTP to day team discretion -monitor hemodynamics overnight -Consider heparin BID if hemodynamically stable and not going for surgery in AM. CAD -H/o IN, s/p stent placement . AAA s/p repair. 120+pk yr smoking hx, quit 2 years ago. -New EKG changes in inferior leads -Pt follows with [facility] cardiology--consulted considering EKG changes, pre-op optimization HTN -Baseline BP in outpatient setting runs 160s/70s -need to optimize BP -Continue metop and schedule amlodipine while in hospital -Monitor CKD IV -Has declined any dialysis and many medications per HPI -will consult nephro -Per pt, most recent appt with nephro was meant to be last week during snowstorm , has not been called to reschedule Lung nodule -Has grown from 27 to 35mm in past 2 yrs -Patient declines any testing on it, however did accept Chest CT in case lesion is cancer and targeted radiation could help -Non-con CT chest ordered DVTP: none ordered due to head bleeding, defer to day team CODE: DNR Dispo: med/surg, awaiting cardio/ortho input for hip repair (2) Acute head injury: (3) Hypertension: (4) Hyperlipidemia: (5) CAD (coronary artery disease): (6) S/P AAA repair: (7) Lung nodule: History of Present Illness Chief Complaint: hip pain, head lac Primary Care Provider: Ruby Tilley MD Patient is a an 83yo M PMH CKD IV, HTN, AAA s/p repair, IN s/p stenting, HLD, who presents today after a mechanical fall after slipping on his driveway. He notes the driveway was icy, and states he fell directly onto his left side/hip. He reports that after the fall, he tried to get up and fell again, this time falling forward and cutting open his head. Patient reports the head wound was worse than the hip originally, but now states that any movement of the legs is excruciating. Imaging in the ER revealed forehead contusion and acute displaced impacted left femoral neck fracture with probable acute mildly displaced fracture of L superior pubic ramus. Also found on imaging was enlargement of spiculated nodule in right lung upper lobe compared to CXR 2 years ago. Patient has over 120 pk yr smoking hx. Patient sees Dr. Thompson for his CKD IV. Per recent notes and confirmed by patient, he declines dialysis, refuses ASA and traditional meds such as Vit D, and treats his BP with metoprolol scheduled and amlodipine 5 maybe every other day, as he feels he needs it. He does check his BPs at home but does not take the amlodipine dependent on that number. Allergies Allergy/AdvReac Type Severity Reaction Status Date / Time No Known Allergies Allergy Verified 12/27/18 19:27 Home Medications Home Medications Medication Instructions Recorded Confirmed Type amlodipine 5 mg PO .QPM/UD PRN 12/27/18 12/27/18 History metoprolol succinate 25 mg PO QAM 12/27/18 12/27/18 History Past Med/Surg History Medical History Aortic aneurysm (Resolved) COPD (chronic obstructive pulmonary disease) Diabetes HTN (hypertension) Heart attack Social History marital status: / Current Living Situation: Other Current Living Situation Comment: sister lives with patient Other Information That Helps Us Care for You: No Feels Safe at Home: Yes Safety Concerns: Feels Safe At This Time Smoking Status: Former smoker Cigarettes per Day: quit 5 years ago Do You Dip or Chew Tobacco: No Hx Substance Use: No Beliefs That Will Affect Care: None Communication Ability: Effective Review of Systems All systems reviewed & are unremarkable except as noted in HPI & below Ear, Nose, Mouth, Throat: + dental caries Respiratory: no cough and no dyspnea Cardiovascular: no chest pain, no radiating jaw, neck or arm pain and no dyspnea Gastrointestinal: no abdominal pain Musculoskeletal: + joint pain Integumentary: + unusual bruising Neurologic: + gait abnormality; no tingling Physical Exam 2 Vital Signs (Past 24 Hours): Last Vital Signs Temp 36.9 C 12/27/18 16:26 Pulse 110 H 12/27/18 19:31 Resp 19 12/27/18 19:31 BP 154/69 H 12/27/18 19:31 Pulse Ox 92 12/27/18 19:31 Constitutional: WD/WN, vitals as above average body habitus Eyes: PERRL, conjunctivae normal, anicteric sclerae + eyelid abnormality ( swollen L eyelid) ENMT: external ear and nose normal, oropharynx normal Ears: + hearing impairment Neck: normal visual inspection Respiratory: normal respiratory effort, lungs clear to auscultation Cardiovascular: RRR, no murmur, no edema Gastrointestinal (Abdomen): normal bowel sounds, soft, nontender, no hepatosplenomegaly Musculoskeletal: Extremities: + abnormal strength; + extremities abnormal to inspection (Left leg shortened and externally rotated) Gait: + abnormal gait Skin: + wound (forehead) Trauma: + evidence of skin trauma, + abrasion, + laceration and + contusion Neurologic: PERRL, EOMI, accommodation nl, no face palsy, no dysarthria Psychiatric: A+Ox3, euthymic affect Results & Data Laboratory Results 12/27/18 12/27/18 12/27/18 Range/Units 19:43 18:40 16:55 WBC (4.8-10.8) K/uL RBC (4.7-6.1) M/uL Hgb (14.0-18.0) g/dL Hct (42-52) % MCV (80-100) fL MCH (25-34) pg MCHC (32-36) g/dL RDW Std Deviation (36.4-46.3) fL RDW Coeff of Cipriano (11.5-14.5) % Plt Count (130-400) K/uL MPV (7.4-10.4) fL Immature Gran % (Auto) % Neut % (Auto) % Lymph % (Auto) % [place] % (Auto) % Eos % (Auto) % Baso % (Auto) % Immature Gran # (Auto) (0.00-0.02) K/uL Neut # (Auto) (1.4-6.5) K/uL Lymph # (Auto) (1.2-3.4) K/uL [place] # (Auto) (0.11-0.59) K/uL Eos # (Auto) (0-0.5) K/uL Baso # (Auto) (0-0.2) K/uL PT (9.0-12.0) Seconds INR (0.9-1.1) APTT (21.0-31.0) Seconds PTT Ratio Sodium 136 (136-145) mmol/L Potassium 4.8 (3.5-5.1) mmol/L Chloride 102 (98-107) mmol/L Carbon Dioxide 26 (21-32) mmol/L Anion Gap 8.0 (3-11) BUN 43 H (7-18) mg/dl Creatinine 2.50 H (0.6-1.4) mg/dl Est Cr Clr Drug Dosing 20.9 ml/min Est GFR ( Amer) 26.2 Est GFR (Non-Af Amer) 22.6 BUN/Creatinine Ratio 17.1 (10-20) Glucose 108 H (70-99) mg/dl Calcium 8.5 (8.5-10.1) mg/dl Blood Type O Positive Cancelled Antibody Screen NEGATIVE Cancelled 12/27/18 12/27/18 Range/Units 16:55 16:55 WBC 20.95 H (4.8-10.8) K/uL RBC 4.24 L (4.7-6.1) M/uL Hgb 12.6 L (14.0-18.0) g/dL Hct 38.4 L (42-52) % MCV 90.6 (80-100) fL MCH 29.7 (25-34) pg MCHC 32.8 (32-36) g/dL RDW Std Deviation 46.0 (36.4-46.3) fL RDW Coeff of Cipriano 14.1 (11.5-14.5) % Plt Count 238 (130-400) K/uL MPV 8.7 (7.4-10.4) fL Immature Gran % (Auto) 1.1 % Neut % (Auto) 88.3 % Lymph % (Auto) 4.7 % Norton % (Auto) 5.8 % Eos % (Auto) 0.0 % Baso % (Auto) 0.1 % Immature Gran # (Auto) 0.24 H (0.00-0.02) K/uL Neut # (Auto) 18.48 H (1.4-6.5) K/uL Lymph # (Auto) 0.98 L (1.2-3.4) K/uL [place] # (Auto) 1.21 H (0.11-0.59) K/uL Eos # (Auto) 0.01 (0-0.5) K/uL Baso # (Auto) 0.03 (0-0.2) K/uL PT 11.1 (9.0-12.0) Seconds INR 1.1 (0.9-1.1) APTT 24.1 (21.0-31.0) Seconds PTT Ratio 0.9 Sodium (136-145) mmol/L Potassium (3.5-5.1) mmol/L Chloride (98-107) mmol/L Carbon Dioxide (21-32) mmol/L Anion Gap (3-11) BUN (7-18) mg/dl Creatinine (0.6-1.4) mg/dl Est Cr Clr Drug Dosing ml/min Est GFR ( Amer) Est GFR (Non-Af Amer) BUN/Creatinine Ratio (10-20) Glucose (70-99) mg/dl Calcium (8.5-10.1) mg/dl Blood Type Antibody Screen Medications Administered Current Inpatient Medications Acetaminophen (Tylenol) 650 mg PO Q4H PRN PRN Reason: pain/fever Stop: 01/26/19 22:20 Al Hydrox/Mg Hydrox/Simethicone (Maalox) 30 ml PO Q6H PRN PRN Reason: Dyspepsia Stop: 01/26/19 22:20 Amlodipine Besylate (Norvasc) 5 mg PO PM [facility] Stop: 01/26/19 22:44 Last Admin: 12/27/18 23:37 Dose: 5 mg Magnesium Hydroxide (Milk Of Magnesia) 30 ml PO Q6H PRN PRN Reason: Constipation Stop: 01/26/19 22:20 Metoprolol Succinate (Toprol Xl) 25 mg PO QAM [facility] Stop: 01/27/19 08:59 Morphine Sulfate (Morphine Sulfate) 4 mg IV Q2H PRN PRN Reason: Pain Stop: 01/10/19 22:20 Last Admin: 12/27/18 23:41 Dose: 4 mg Ondansetron HCl (Zofran) 4 mg IV Q6H PRN PRN Reason: Nausea Stop: 01/26/19 22:20 Polyethylene Glycol (Miralax Powder Packet) 17 gm PO DAILY PRN PRN Reason: Constipation Stop: 01/26/19 22:20 Code Status & VTE Plan Code Status DNR Supervising Physician Co-Signing Physician Notes Attending addendum: I have physically seen this patient, have supervised the medical residents activities, and agree with the H&P unless as otherwise noted. Assessment and Plan: Closed left hip fracture-- N.p.o. after midnight except medications. Acetaminophen 1 g IV every 8 hours as needed mild pain or temperature. Morphine sulfate 4 mg IV every 2 hours as needed. Consult orthopedics. CAD/hypertension/coronary artery stent placement/history of AAA repair-- The patient will be admitted to telemetry for serial cardiac enzymes, serial EKG's, cardiac rhythm monitoring and a 2-D echocardiogram with Dopplers. Continue metoprolol and amlodipine with hold parameters. Follows with [facility] cardiology.. Remainder of orders and notations as noted above. Resident Activity Tracking Resident Involvement: Resident Care Provided Care Provided: Adult [facility] Medicine _ (1) Acute head injury Encounter type: initial encounter Qualified Code(s): S09.90XA - Unspecified injury of head, initial encounter (2) Closed left hip fracture Encounter type: initial encounter Fracture healing: Qualified Code(s): S72.002A - Fracture of unspecified part of neck of left femur, initial encounter for closed fracture
[2018-12-27] MEDS ORDERED: ONDANSETRON INJ 2 MG/ML 2 ML VIAL IV PRN (22:21)
[2018-12-27] MEDS ORDERED: MAGNESIUM HYDROXIDE SUSP 30 ML UDC PO PRN (22:21)
[2018-12-27] MEDS ORDERED: POLYETHYLENE (MIRALAX) 17 GM PACK PO PRN (22:21)
[2018-12-27] MEDS ORDERED: ALUMINUM/MAGNESIUM SUSP 30 ML UDC PO PRN (22:21)
[2018-12-27] MEDS ORDERED: ACETAMINOPHEN 325 MG TAB PO PRN (22:21)
[2018-12-27] MEDS: AMLODIPINE BESYLATE 5 MG TAB PO SCH (23:37)
[2018-12-27] MEDS: MoRPHine SULFATE 4 MG/ML 1 ML CARP\\VIAL IV PRN (23:41)
[2018-12-28] MEDS: MoRPHine SULFATE 4 MG/ML 1 ML CARP\\VIAL IV PRN (05:21)
[2018-12-28] MEDS: METOPROLOL SUCC 25MG EXT REL TAB PO SCH (07:35)
[2018-12-28 08:00] LABS: Basophils % (auto) 0.8 %; Eosinophils % (auto) 0.8 %; Hematocrit (blood only) 37.4 % (42-52); Hemoglobin 11.9 g/dL (14.0-18.0); Immature Granulocytes % (auto) 0.8 %; Lymphocytes # (auto) 1.69 K/uL (1.2-3.4); Lymphocytes % (auto) 13.4 %; Mean Corpuscular Hgb Conc 31.8 g/dL (32-36); Mean Corpuscular Volume 91.9 fL (80-100); Mean Platelet Volume 9.2 fL (7.4-10.4); Monocytes # (auto) 1.85 K/uL (0.11-0.59); Monocytes % (auto) 14.7 %; Neutrophils # (auto) 8.77 K/uL (1.4-6.5); Neutrophils % (auto) 69.5 %; Platelet Count 230 K/uL (130-400); RDW Coefficient of Variation 14.3 % (11.5-14.5); RDW Standard Deviation 47.4 fL (36.4-46.3); Red Blood Count 4.07 M/uL (4.7-6.1); White Blood Count 12.61 K/uL (4.8-10.8)
[2018-12-28 08:25] LABS: BUN Creatinine Ratio 18.5 (10-20); Calcium 8.4 mg/dl (8.5-10.1); Creatinine Clr Calc Pharmacy 19.3 ml/min; Est GFR (African American) 23.7; Est GFR (Non-African American) 20.5; Potassium 5.5 mmol/L (3.5-5.1)
--- NOTE | 2018-12-28 09:23 | CT Scan Report ---
CT chest wo con CLINICAL HISTORY: 83 years-old Male presenting with enlarged right lung lesion. TECHNIQUE: Multidetector CT imaging of the chest was performed without the use of intravenous contras t. IV contrast: None. One or more dose lowering techniques were used consistent with the principles o f ALARA (as low as reasonably achievable), including automatic exposure control, mA or kV adjustment to individual patient size, and/or use of iterative reconstruction. COMPARISON: Chest x-ray from 12/27/2018. CT DOSE (mGy.cm): The estimated cumulative dose is 209.05 mGy.cm. 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 Pleural thickening in the left upper lung periphery. Soft tissues: Normal thyroid and thoracic inlet. Gynecomastia. Pathologically enlarged mediastinal ly mph nodes in the right paratracheal, precarinal, and subcarinal regions. Mediastinal lymphadenopathy crosses the midline. Enlarged right hilar lymph nodes also suspected. Evaluation of the richard limited by lack of intravenous contrast. The largest lymph node is located in the subcarinal region measuring 2.2 cm in short axis. Suspicious lymph nodes also noted in the right supraclavicular fossa. Atherosc lerosis of the aorta. Normal heart size. Coronary artery and aortic valve calcification. Trace right pleural effusion. No pericardial effusion. Multiple well-defined hypodensities in the liver, indeterm inate though possibly hepatic cysts, unchanged since 2016. Calcification in the spleen may be indicat hermann of prior granulomatous disease or relate to arteriosclerosis. 2.4 cm nodule in the left adrenal g land, indeterminate by density. 1.4 cm nodule in the right adrenal gland also indeterminate by densit y. These were present in 2016. Suspected right renal cyst. Partially visualized endograft stent in th e abdominal aorta. Lungs and airways: No pneumothorax. Extensive bronchial wall thickening. Moderate upper lobe predomin ant centrilobular emphysema. Dependent reticular opacities in the lower lobes with paraseptal emphyse matous change. Spiculated multilobular nodule in the posterior apical right upper lobe measuring 2.8 cm in maximal diameter. This extends inferiorly abutting the pleura with a separate smaller nodular c omponent measuring 1.3 cm. Polygonal solid fissural 7 mm nodule in the anterobasal right lower lobe ( series 4 image 156). Solid fissural 8 mm nodule in the super segment of left lower lobe (series 4 allison ge 160). Calcified pleural plaques evident bilaterally. Musculoskeletal: Degenerative changes of the spine. Mild exaggerated thoracic kyphosis with mild mult ilevel anterior vertebral body wedging deformities in the midthoracic spine, associated with degenera tive change likely implying chronicity. IMPRESSION: 1. Spiculated solid highly suspicious 2.8 cm right apical nodule. This is consistent with primary br onchogenic neoplasm. 2. Significant right hilar, diffuse mediastinal, and suspected right supraclavicular lymphadenopathy . 3. Emphysema and bronchitis. 4. Bilateral adrenal gland nodules indeterminate though unchanged since 2016 highly suggestive of be nign adenomas. The report will be called/faxed according to standard departmental protocol. Electronically signed by: Lon Veliz M.D. 12/28/2018 9:22 AM
--- NOTE | 2018-12-28 09:50 | Cardiology Consultation ---
Date of Consultation December 28, 2018 Assessment & Plan (1) Closed left hip fracture: s/p mechanical fall with resultant left hip fracture. Proposed surgical intervention. (2) Fracture, nasal: Status post head trauma. (3) Lung nodule: CT scan suggestive of broncho-genic carcinoma in patient with history of significant past cigarette smoking. (4) CAD (coronary artery disease): Stable chronic coronary heart disease. Per patient, had a history of myocardial infarction times 2-day back to the . I reviewed images of a CT of the chest performed back in 2015, and it appears that the patient has stents in the right coronary artery. (5) S/P AAA repair: History of endovascular abdominal aortic aneurysm repair on 05/27/16. Had most recently been seen in follow-up in 2017 and missed his 2 most recent appointments. (6) Pre-operative cardiovascular examination, high risk surgery: The patient tells me that he does not take aspirin on a routine basis despite his history of coronary heart disease and endovascular abdominal aortic aneurysm repair. He has a history of use of metoprolol succinate 25 mg daily as well as amlodipine 5 mg daily and these have been continued. He states he does not take aspirin due to his chronic easy bruisability. The patient has an apparent history of stage IV chronic kidney disease. His creatinine appears to be a little bit higher than his typical baseline. The patient is certainly at high risk for cardiac and noncardiac complication with proposed surgical intervention for his hip fracture, however he is well optimized. He does not take aspirin on a regular basis, and I do not think it is therefore indicated to resume it now. I discussed with the patient and his sister at the bedside at the preference for proceeding with surgery would be for pain control and for help increase his mobility to help him resume his independence and he was motivated to do this and to accept the potential risks. (7) Hyperkalemia: Have ordered a repeat basic metabolic panel. I am going to discuss this with the primary team and ask them to follow-up the chemistry panel. History of Present Illness Attending Physician: Bebeto Soler History of Present Illness Jaime Dejesus is an 83 year old male seen in cardiology consultation per the request of [place] Daval[place] [facility] [place] for preoperative cardiac assessment prior to proposes surgical intervention for a displaced subcapital left hip fracture. The patient is accompanied by his sister, Molly. He typically lives independently , however his sister plans to stay with him in the future. Yesterday, the patient was apparently at his normal state of health and he initially tripped on his icy driveway and fell impacting his hip with resultant injury. He had difficulty getting up and had a second fall this time injuring his head. Workup in the emergency room revealed the displaced left femoral neck fracture as well as was felt to be a mildly displaced fracture of the left superior pubic ramus. A facial CT revealed an age undetermined nondisplaced left nasal bone fracture and a forehead contusion with no frontal bone fracture. Chest x- ray suggested a lung nodule that was worse compared to a prior chest x-ray from several years ago. This was followed with a CT of the chest performed this morning. Per the radiology report there is a highly suspicious 2.8 cm right apical lung nodule with appearance consistent with primary bronchogenic neoplasm. There is significant right hilar, mediastinal, and right supraclavicular lymphadenopathy. Emphysema was noted. The adrenal glands are noted to have nodules that were unchanged compared to 2016. During my assessment of the patient he was lying supine he stated that if he states still he did not have any hip pain with minimal movement he did have hip pain. He does not follow locally with cardiology. I confirmed in the [facility] electronic record that he is not followed with our group, and he also does not follow with the [facility] [place]. The patient also confirmed that he does not follow with cardiology as an outpatient. He describes to me that he has a history of coronary heart disease with what he believes was 2 past myocardial infarctions that took place in the late when he was in [place]. He describes having had cardiac stents on one occasion. In 2016. he had been assessed for vague abdominal discomfort and was found to have a 5.6 cm abdominal aortic aneurysm on CT scan. He therefore underwent [facility]AR at [facility] on 05/27/[address] Bird with stenting into the left iliac limb. He had most recently been seen in routine vascular surgery follow-up on 04/14/17. At that time a contrast-enhanced CT was not performed due to the patient's renal insufficiency. The noncontrast study revealed a stable abdominal aortic aneurysm and a duplex revealed findings that did not suggest an endovascular leak. The patient did not keep subsequent vascular surgery follow-ups that have been scheduled in 2018 and recently missed another follow- up appointment earlier this month. Allergies Allergy/AdvReac Type Severity Reaction Status Date / Time No Known Allergies Allergy Verified 12/27/18 19:27 Home Medications Home Medications Medication Instructions Recorded Confirmed Type amlodipine 5 mg PO .QPM/UD PRN 12/27/18 12/27/18 History metoprolol succinate 25 mg PO QAM 12/27/18 12/27/18 History Patient History Medical History Aortic aneurysm (Resolved) COPD (chronic obstructive pulmonary disease) Diabetes HTN (hypertension) Heart attack Social History Current Living Situation: Other Current Living Situation Comment: sister lives with patient Other Information That Helps Us Care for You: No Feels Safe at Home: Yes Safety Concerns: Feels Safe At This Time Smoking Status: Former smoker Cigarettes per Day: quit 5 years ago Do You Dip or Chew Tobacco: No Second Hand Exposure: No Tobacco Cessation Education Requested by Patient: No Hx Substance Use: No Beliefs That Will Affect Care: None Preferred Language: Chinese Communication Ability: Effective Hospice Music Therapy Required: No Review of Systems 10 point review of systems was performed and is negative the exception of that noted above Physical Exam 2 Vital Signs (Past 24 Hours): Last Vital Signs Temp 36.5 C 12/28/18 07:15 Pulse 86 12/28/18 07:15 Resp 18 12/28/18 07:15 BP 116/61 12/28/18 07:15 Pulse Ox 92 12/28/18 07:15 Physical Exam: General: Frail in appearance, multiple areas of ecchymosis on his forearms and the dorsum of his hands Head: Forehead hematoma noted Eyes: conjunctiva are pink and non-injected, sclera clear Neck: normal jugular venous pulse, no hepatojugular reflux Chest: normal shape and normal respiratory effort Lungs: clear to auscultation and percussion Cardiac Exam: - regular heart sounds, no murmurs, rubs, or gallops, no jugular venous distention, no lower extremity edema Abdomen: abdomen soft, non-tender, no abnormal masses and no hepatosplenomegaly Neuro:awake, coversant, follows commands, no focal motor deficits Psych: appropriate affect and insight. Results & Data Laboratory Results Coagulation 12/27/18 Range/Units 16:55 PT 11.1 (9.0-12.0) Seconds APTT 24.1 (21.0-31.0) Seconds CBC 12/27/18 12/28/18 Range/Units 16:55 07:02 WBC 20.95 H 12.61 H (4.8-10.8) K/uL RBC 4.24 L 4.07 L (4.7-6.1) M/uL Hgb 12.6 L 11.9 L (14.0-18.0) g/dL Hct 38.4 L 37.4 L (42-52) % Plt Count 238 230 (130-400) K/uL Neut # (Auto) 18.48 H 8.77 H (1.4-6.5) K/uL Lymph # (Auto) 0.98 L 1.69 (1.2-3.4) K/uL [place] # (Auto) 1.21 H 1.85 H (0.11-0.59) K/uL Eos # (Auto) 0.01 0.10 (0-0.5) K/uL Baso # (Auto) 0.03 0.10 (0-0.2) K/uL Comprehensive Metabolic Panel 12/27/18 12/28/18 Range/Units 16:55 07:02 Sodium 136 136 (136-145) mmol/L Potassium 4.8 5.5 H (3.5-5.1) mmol/L Chloride 102 106 (98-107) mmol/L Carbon Dioxide 26 23 (21-32) mmol/L BUN 43 H 50 H (7-18) mg/dl Creatinine 2.50 H 2.71 H (0.6-1.4) mg/dl Glucose 108 H 92 (70-99) mg/dl Calcium 8.5 8.4 L (8.5-10.1) mg/dl Intake and Output 12/27/18 12/28/18 12/28/18 22:59 06:59 14:59 Output Total 250 / 250 Balance -250 / -250 Output: Urine 250 / 250 Other: Other Intake Source NPO Weight 70.2 kg Diagnostic Findings EKG performed 12/27/18 at 1643 and reviewed independently revealed sinus rhythm at 99 bpm with occasional PVCs, limb lead reversal is suspected based on abnormal axis in leads I, aVL, and aVR otherwise, no significant abnormalities. Repeat EKG performed 12/28/18 8:40 AM revealed sinus rhythm 89 bpm with frequent PVCs, mild nonspecific ST abnormality noted, compared to the prior tracing, the previously noted abnormal axis in the limb leads I and aVL and aVR have resolved. The abnormality on the previous EKG is therefore consistent with limb lead reversal. I see no suggestion of a prior myocardial infarction based on this EKG. _ (1) Closed left hip fracture Encounter type: initial encounter Fracture healing: Qualified Code(s): S72.002A - Fracture of unspecified part of neck of left femur, initial encounter for closed fracture (2) Fracture, nasal Encounter type: initial encounter Fracture healing: Fracture type: closed Qualified Code(s): S02.2XXA - Fracture of nasal bones, initial encounter for closed fracture
--- NOTE | 2018-12-28 10:31 | Orthopedic Consultation ---
Date of Consultation December 28, 2018 Assessment & Plan (1) Closed left hip fracture: He is npo. I discussed treatment for the femoral neck fracture, specifically cemented bipolar hemiarthroplasty, with Mr. Dejesus and his sister. Procedure was explained, including risks, benefits, alternatives to surgery. He would like to proceed with surgery and consent was obtained. Continue npo, teds and scds for dvt prophylaxis, and bedrest today. History of Present Illness Reason for Consultation: Left hip fracture Attending Physician: Bebeto Soler History of Present Illness Mr. Dejesus is a 83 y/o male whom we were asked to see regarding a left hip fracture. I saw him today just prior to going down for a CT scan. His sister is with him. He slipped on the ice yesterday and fell, injuring his left hip. Denies any other injuries. His pain is controlled at this time. He has left hip pain if he moves. He previously ambulated without assistance, but does have a cane. He lives with his sister in [place]. Complete PMH was reviewed and please refer to the admission H & P for completeness. Allergies Allergy/AdvReac Type Severity Reaction Status Date / Time No Known Allergies Allergy Verified 12/27/18 19:27 Home Medications Home Medications Medication Instructions Recorded Confirmed Type amlodipine 5 mg PO .QPM/UD PRN 12/27/18 12/27/18 History metoprolol succinate 25 mg PO QAM 12/27/18 12/27/18 History Patient History Medical History Aortic aneurysm (Resolved) COPD (chronic obstructive pulmonary disease) Diabetes HTN (hypertension) Heart attack Social History Current Living Situation: Other Current Living Situation Comment: sister lives with patient Other Information That Helps Us Care for You: No Feels Safe at Home: Yes Safety Concerns: Feels Safe At This Time Smoking Status: Former smoker Cigarettes per Day: quit 5 years ago Do You Dip or Chew Tobacco: No Second Hand Exposure: No Tobacco Cessation Education Requested by Patient: No Hx Substance Use: No Beliefs That Will Affect Care: None Preferred Language: Arabic Communication Ability: Effective Oil Distributor Required: No Physical Exam 2 Vital Signs (Past 24 Hours): Last Vital Signs Temp 36.5 C 12/28/18 07:15 Pulse 86 12/28/18 07:15 Resp 18 12/28/18 07:15 BP 116/61 12/28/18 07:15 Pulse Ox 92 12/28/18 07:15 Musculoskeletal: He is alert and oriented. NAD. He is supine in bed. No tenderness of his neck. No pain with ROM of his upper extremities or RLE, including his right hip. He has some bruising around his arms that he states has been there prior to his fall. His left leg is shortened and externally rotated. I did not do any ROM of the left hip. He is able to DF/PF appropriately. NVI. Results & Data Diagnostic Findings xrays show a displaced left femoral neck fracture as well as a left superior pubic ramus fracture. _ (1) Closed left hip fracture Encounter type: initial encounter Fracture healing: Qualified Code(s): S72.002A - Fracture of unspecified part of neck of left femur, initial encounter for closed fracture
[2018-12-28 11:25] LABS: BUN Creatinine Ratio 17.1 (10-20); Calcium 8.4 mg/dl (8.5-10.1); Creatinine Clr Calc Pharmacy 18.1 ml/min; Potassium 5.4 mmol/L (3.5-5.1)
[2018-12-28 11:54] LABS: Appearance Urine Cloudy (Clear); Bacteria Urine Automated Negative (Negative); Bilirubin Urine Negative (Negative); Color Urine Yellow; Epithelial Cell Urine Auto >30 /lpf (0-5); Glucose Urine UA Negative (Negative); Ketones Urine Negative (Negative); Leukocyte Esterase Urine Negative (Negative); Nitrite Urine Negative (Negative); Protein Urine 2+ (Negative); Specific Gravity Urine 1.015 (1.000-1.030); Urobilinogen Urine Negative (Negative)
[2018-12-28] MEDS ORDERED: FUROSEMIDE 20 MG in SYRINGE 0 ML IV ONE (12:52)
--- NOTE | 2018-12-28 13:00 | Nephrology Consultation ---
Date of Consultation December 28, 2018 Assessment & Plan (1) Chronic kidney disease, stage 4 (severe): -- Baseline creatinine has been 2.6. Kidney function remains stable at this time. Will monitor (2) Hyperkalemia: -- Mild hyperkalemia. This has been a chronic problem. Will provide gentle hydration and add bicarbonate to IVF to shift potassium intracellularly. Will also provide one dose of IV Furosemide to promote diuresis and enhance potassium excretion -- Recheck PRP in am (3) Closed left hip fracture: -- Await Orthopedic input (4) Lung nodule: -- CT reports reviewed. 2.5 cm spiculated lesion in R apical lung concerning for malignancy. Patient will require Pulmonology evaluation once recovered from hip fracture History of Present Illness Reason for Consultation: CKD, hyperkalemia Attending Physician: Bebeto Soler History of Present Illness Mr. Dejesus is an 83 year old white male who is seen at the request of Dr. Soler for evaluation of CKD and hyperkalemia. Medical records in the EMR were reviewed today and are summarized as follows: Mr. Dejesus has CKD w/ baseline creatinine 2.6. His renal impairment is attributed to hypertensive nephrosclerosis and vascular disease. Dr. Thompson has been his Spiritual Advisor. They have discussed the possibility or NONDESTRUCTIVE TESTER but Mr. Dejesus has noted that he does not desire aggressive medical intervention. He is familiar w/ HD. His was on IHD prior to her . He does not feel that dialysis would afford him quality of life. Mr. Dejesus's medical history is significant for AAA s/p EVAR ( 05/24), ASCVD, hypercholesterolemia, CKD and chronic hyperkalemia. Mr. Dejesus suffered a mechanical fall resulting in scalp laceration and L femur fracture. He is undergoing Orthopedic evaluation. Chest CT revealed a RUL spiculated mass concerning for malignancy Allergies Allergy/AdvReac Type Severity Reaction Status Date / Time No Known Allergies Allergy Verified 12/27/18 19:27 Home Medications Home Medications Medication Instructions Recorded Confirmed Type amlodipine 5 mg PO .QPM/UD PRN 12/27/18 12/27/18 History metoprolol succinate 25 mg PO QAM 12/27/18 12/27/18 History Patient History Medical History Aortic aneurysm (Resolved) COPD (chronic obstructive pulmonary disease) Diabetes HTN (hypertension) Heart attack Social History Current Living Situation: Other Current Living Situation Comment: sister lives with patient Other Information That Helps Us Care for You: No Feels Safe at Home: Yes Safety Concerns: Feels Safe At This Time Smoking Status: Former smoker Cigarettes per Day: quit 5 years ago Do You Dip or Chew Tobacco: No Second Hand Exposure: No Tobacco Cessation Education Requested by Patient: No Hx Substance Use: No Beliefs That Will Affect Care: None Preferred Language: Portuguese Communication Ability: Effective Import/Export Agent Required: No Review of Systems Constitutional: no fever Respiratory: no dyspnea Cardiovascular: no chest pain Gastrointestinal: no vomiting and no diarrhea/loose stools Physical Exam 2 Vital Signs (Past 24 Hours): Last Vital Signs Temp 37.0 C 12/28/18 11:41 Pulse 82 12/28/18 11:41 Resp 20 12/28/18 11:41 BP 114/74 12/28/18 11:41 Pulse Ox 91 12/28/18 11:41 Eyes: PERRL, conjunctivae normal, anicteric sclerae Neck: trachea midline, no thyromegaly Respiratory: normal respiratory effort, lungs clear to auscultation Cardiovascular: RRR, no murmur, no edema Gastrointestinal (Abdomen): normal bowel sounds, soft, nontender, no hepatosplenomegaly Skin: + turgor decreased Trauma: + evidence of skin trauma and + laceration (scalp) Results & Data Laboratory Results Laboratory Tests 12/28/18 12/28/18 07:02 07:02 WBC 12.61 H Hgb 11.9 L Hct 37.4 L Plt Count 230 Sodium 136 Potassium 5.5 H Chloride 106 Carbon Dioxide 23 BUN 50 H Creatinine 2.71 H Glucose 92 _ (1) Closed left hip fracture Encounter type: initial encounter Fracture healing: Qualified Code(s): S72.002A - Fracture of unspecified part of neck of left femur, initial encounter for closed fracture
--- NOTE | 2018-12-28 13:10 | Hospitalist Progress Note ---
Date of Service December 28, 2018 Assessment & Plan (1) Closed left hip fracture: s/p ORIF by Dr. Louie Nieves today. Appreciate his consultation & assistance. DVT proph - asa 81mg BID. Pain control. In light of concern of primary lung cancer on imaging await path from the surgery today to r/o metastatic disease. Present on Admission?: Yes (2) Acute head injury: CT head, fortunately, w/o acute findings. Had head laceration s/p repair. Present on Admission?: Yes (3) Facial laceration: s/p repair (4) Leukocytosis: 2nd to stress of fall and injuries? check u/a and urine cx, r/o UTI. chest imaging w/o signs of pneumonia. repeat CBC in am. (5) COPD (chronic obstructive pulmonary disease): not in exacerbation at this time (6) Hypertension: continue home meds (7) Hyperlipidemia: (8) CAD (coronary artery disease): does not take asa on regular basis continue beta sylvia perioperatively no ischemic symptoms at home as of late fortunately patient did OK today from cardiopulmonary standpoint during his surgery patient to be placed on tele post-op for at least 24 hours appreciate cardiology consultation (9) Lung nodule: RUL, highly suspicious for lung ca uncertain if patient will want to pursue Rx for this but suspect he will not want to (10) Chronic kidney disease, stage 4 (severe): baseline Cr about 2.5/2.6 superimposed DESTINY - granular casts on u/a suggestive of ATN supportive care BMP tonight and in am appreciate nephrology consultation (11) Hyperkalemia: lasix x 1 per nephrology bicarb infusion at 100cc/hr BMP tonight and in am telemetry 2nd to DESTINY/ATN (12) Acute kidney injury: in setting of fall with hip fracture supportive care, IV fluids, etc likely ATN appreciate nephrology consultation (13) DVT prophylaxis: per ortho but it appears it will be asa 81mg bid PT, OT when able Subjective patient resting comfortably during my visit he denied any hip pain reports no recent chest pain at home (either at rest or w/ activity) has chronic, stable baseline STEINBERG sister was at bedside I had discussions with anesthesia, orthopedics, and cardiology regarding this gentleman's care and optimization prior to surgery Constitutional: + weight loss (prior to admission ); no fever Respiratory: no cough, no dyspnea and no hemoptysis Cardiovascular: no chest pain, no orthopnea and no paroxysmal nocturnal dyspnea Gastrointestinal: no abdominal pain, no nausea and no vomiting Genitourinary (Male): + difficulty urinating and + urinary incontinence; no dysuria Musculoskeletal: + joint pain (hip, left, but no pain in any other location ) Physical Exam 2 Vital Signs (Past 24 Hours): Last Vital Signs Temp 37.0 C 12/28/18 11:41 Pulse 82 12/28/18 11:41 Resp 20 12/28/18 11:41 BP 114/74 12/28/18 11:41 Pulse Ox 91 12/28/18 11:41 Constitutional: + ill appearing and average body habitus; no acute distress Eyes: PERRL, conjunctivae normal, anicteric sclerae ENMT: external ear and nose normal, oropharynx normal Respiratory: normal respiratory effort, lungs clear to auscultation Cardiovascular: Rate/Rhythm: regular rate and regular rhythm Heart Sounds: normal S1 and normal S2; no murmur Vessels: posterior tibial pulses present and dorsalis pedis pulses present Extremities: no edema Gastrointestinal (Abdomen): normal bowel sounds, soft, nontender, no hepatosplenomegaly Musculoskeletal: left leg mildly shortened and externally rotated Skin: laceration, left forehead - sutures in place, well-approximated; abrasions scattered about in this general region Psychiatric: A+Ox3, euthymic affect Results & Data Laboratory Results Laboratory Results - last 24 hr 12/27/18 12/27/18 12/27/18 16:55 16:55 16:55 WBC 20.95 H RBC 4.24 L Hgb 12.6 L Hct 38.4 L MCV 90.6 MCH 29.7 MCHC 32.8 RDW Std Deviation 46.0 RDW Coeff of [place] 14.1 Plt Count 238 MPV 8.7 Immature Gran % (Auto) 1.1 Neut % (Auto) 88.3 Lymph % (Auto) 4.7 [place] % (Auto) 5.8 Eos % (Auto) 0.0 Baso % (Auto) 0.1 Immature Gran # (Auto) 0.24 H Neut # (Auto) 18.48 H Lymph # (Auto) 0.98 L [place] # (Auto) 1.21 H Eos # (Auto) 0.01 Baso # (Auto) 0.03 PT 11.1 INR 1.1 APTT 24.1 PTT Ratio 0.9 Sodium 136 Potassium 4.8 Chloride 102 Carbon Dioxide 26 Anion Gap 8.0 BUN 43 H Creatinine 2.50 H Est Cr Clr Drug Dosing 20.9 Est GFR ( Amer) 26.2 Est GFR (Non-Af Amer) 22.6 BUN/Creatinine Ratio 17.1 Glucose 108 H Calcium 8.5 Urine Color Urine Appearance Urine pH Ur Specific [place] Urine Protein Urine Glucose (UA) Urine Ketones Urine Blood Urine Nitrite Urine Bilirubin Urine Urobilinogen Ur Leukocyte Esterase Urine WBC (Auto) Urine RBC (Auto) U Hyaline Cast (Auto) U Epithel Cells (Auto) Urine Bacteria (Auto) Ur Renal Epithelial Cell Granular Casts Urine Yeast Blood Type Antibody Screen 12/27/18 12/27/18 12/28/18 18:40 19:43 07:02 WBC 12.61 H RBC 4.07 L Hgb 11.9 L Hct 37.4 L MCV 91.9 MCH 29.2 MCHC 31.8 L RDW Std Deviation 47.4 H RDW Coeff of [place] 14.3 Plt Count 230 MPV 9.2 Immature Gran % (Auto) 0.8 Neut % (Auto) 69.5 Lymph % (Auto) 13.4 [place] % (Auto) 14.7 Eos % (Auto) 0.8 Baso % (Auto) 0.8 Immature Gran # (Auto) 0.10 H Neut # (Auto) 8.77 H Lymph # (Auto) 1.69 [place] # (Auto) 1.85 H Eos # (Auto) 0.10 Baso # (Auto) 0.10 PT INR APTT PTT Ratio Sodium Potassium Chloride Carbon Dioxide Anion Gap BUN Creatinine Est Cr Clr Drug Dosing Est GFR ( Amer) Est GFR (Non-Af Amer) BUN/Creatinine Ratio Glucose Calcium Urine Color Urine Appearance Urine pH Ur Specific [place] Urine Protein Urine Glucose (UA) Urine Ketones Urine Blood Urine Nitrite Urine Bilirubin Urine Urobilinogen Ur Leukocyte Esterase Urine WBC (Auto) Urine RBC (Auto) U Hyaline Cast (Auto) U Epithel Cells (Auto) Urine Bacteria (Auto) Ur Renal Epithelial Cell Granular Casts Urine Yeast Blood Type Cancelled O Positive Antibody Screen Cancelled NEGATIVE 12/28/18 12/28/18 12/28/18 07:02 10:54 11:20 WBC RBC Hgb Hct MCV MCH MCHC RDW Std Deviation RDW Coeff of [place] Plt Count MPV Immature Gran % (Auto) Neut % (Auto) Lymph % (Auto) [place] % (Auto) Eos % (Auto) Baso % (Auto) Immature Gran # (Auto) Neut # (Auto) Lymph # (Auto) [place] # (Auto) Eos # (Auto) Baso # (Auto) PT INR APTT PTT Ratio Sodium 136 136 Potassium 5.5 H 5.4 H Chloride 106 105 Carbon Dioxide 23 23 Anion Gap 8.0 8.0 BUN 50 H 49 H Creatinine 2.71 H 2.88 H Est Cr Clr Drug Dosing 19.3 18.1 Est GFR ( Amer) 23.7 22.0 Est GFR (Non-Af Amer) 20.5 19.0 BUN/Creatinine Ratio 18.5 17.1 Glucose 92 90 Calcium 8.4 L 8.4 L Urine Color Yellow Urine Appearance Cloudy H Urine pH 5.0 Ur Specific [place] 1.015 Urine Protein 2+ H Urine Glucose (UA) Negative Urine Ketones Negative Urine Blood 1+ H Urine Nitrite Negative Urine Bilirubin Negative Urine Urobilinogen Negative Ur Leukocyte Esterase Negative Urine WBC (Auto) 10-30 H Urine RBC (Auto) 0-4 U Hyaline Cast (Auto) 1-5 U Epithel Cells (Auto) >30 H Urine Bacteria (Auto) Negative Ur Renal Epithelial Cell Not Reportable Granular Casts 1-5 H Urine Yeast [place] H Blood Type Antibody Screen _ (1) Closed left hip fracture Encounter type: initial encounter Fracture healing: Qualified Code(s): S72.002A - Fracture of unspecified part of neck of left femur, initial encounter for closed fracture (2) Acute head injury Encounter type: initial encounter Qualified Code(s): S09.90XA - Unspecified injury of head, initial encounter (3) Facial laceration Encounter type: initial encounter Qualified Code(s): S01.81XA - Laceration without foreign body of other part of head, initial encounter (4) Leukocytosis Leukocytosis type: unspecified Qualified Code(s): D72.829 - Elevated white blood cell count, unspecified (5) COPD (chronic obstructive pulmonary disease) COPD type: unspecified COPD Qualified Code(s): J44.9 - Chronic obstructive pulmonary disease, unspecified (6) Hypertension Hypertension type: essential hypertension Qualified Code(s): I10 - Essential (primary) hypertension (7) Hyperlipidemia Hyperlipidemia type: mixed hyperlipidemia Qualified Code(s): E78.2 - Mixed hyperlipidemia (8) CAD (coronary artery disease) Coronary Disease-Associated Artery/Lesion type: [place] artery [place] vs. transplanted heart: [place] heart Associated angina: without angina Qualified Code(s): I25.10 - Atherosclerotic heart disease of [place] coronary artery without angina pectoris
--- NOTE | 2018-12-28 13:12 | History & Physical Bridge Note ---
Date of Service December 28, 2018 History & Physical Bridge Note Pt seen/examined, chart reviewed, care plan d/w BREANNA Mccarthy from orthopedics , Dr. Ruvalcaba from anesthesiology, and Dr. Cutler from [facility] cardiology. Creatinine is slightly higher than his usual baseline creatinine c/w very minimal acute kidney injury (also w/ casts on u/a). Potassium was 5.5; repeat was 5.4. Patient w/o symptoms from such. From a cardiopulmonary standpoint the patient is about as optimized as he will be. His CV risk is at least moderate for a perioperative cardiac event given his prior h/o CAD, CKD, etc. He endorses no recent ischemic symptoms at home. He has STEINBERG at baseline with no change in such recently. I discussed the patient's mildly high potassium with Dr. Ruvalcaba. Dr. Kiran will be placing patient on bicarbonate infusion and also gave lasix which will drive down the potassium. At this time anesthesiology feels comfortable with the current potassium level and the patient will have his surgery at some point later today. Mr. Mccarthy was notified of the decision to proceed forward with surgery. All parties feel that the benefits of moving forward with surgery outweigh the risks. I have recommended that the patient be placed on telemetry following his surgery. Please see my full progress note for additional details. Bebeto Soler MD
[2018-12-28] MEDS: SODIUM BICARBONATE 8.4% 75 MEQ in SODIUM CHLORIDE 0.45 % 1,000 ML IV SCH (13:21)
--- NOTE | 2018-12-28 13:23 | Anesthesiology Consultation ---
Date of Service December 28, 2018 Assessment & Plan NPO Date Last Intake of Fluids: 12/28/18 Time Last Intake of Fluids: 07:40 Last Intake of Fluids Comment: sip of water with medication Date Last Intake of Solids: 12/27/18 Time Last Intake of Solids: 11:30 History Surgery Operation Date: 12/28/18 07:20 Proposed Procedures p Left Hip Hemiarthroplasty - Louie Nieves MD Height/Weight Height: 5 ft 8 in Weight: 70.2 kg Allergies Allergy/AdvReac Type Severity Reaction Status Date / Time No Known Allergies Allergy Verified 12/27/18 19:27 Medications Home Medications Medication Instructions Recorded Confirmed Last Taken amlodipine 5 mg PO .QPM/UD PRN 12/27/18 12/27/18 Unknown metoprolol succinate 25 mg PO QAM 12/27/18 12/27/18 Unknown Active Medications Generic Name Dose Route Start Last Admin Trade Name Freq PRN Reason Stop Dose Admin Amlodipine Besylate 5 mg 12/27/18 22:45 12/27/18 23:37 Norvasc PO 01/26/19 22:44 5 mg PM CHARLES Administration Sodium Bicarbonate 75 meq/ 1,075 mls @ 100 mls/hr 12/28/18 13:00 12/28/18 13: 21 Sodium Chloride IV 01/27/19 12:59 100 mls/hr .[id number] CHARLES Administration Metoprolol Succinate 25 mg 12/28/18 09:00 12/28/18 07:35 Toprol Xl PO 01/27/19 08:59 25 mg QAM CHARLES Administration Morphine Sulfate 4 mg 12/27/18 22:21 12/28/18 05:21 Morphine Sulfate IV 01/10/19 22:20 4 mg Q2H PRN Administration Pain Past Medical History Medical History Aortic aneurysm (Resolved) COPD (chronic obstructive pulmonary disease) Diabetes HTN (hypertension) Heart attack Past Anesthesia History No Hx of Anesthesia Complications and No Family Hx of Anesthesia Complications History of PONV No Motion Sickness Screening History of Motion Sickness: No Social History Smoking Status: Former smoker Smoking cigarettes per day: quit 5 years ago Do You Dip or Chew Tobacco: No Alcohol type: beer Alcohol Intake Frequency Comment: 1 beer a day instead of an aspirin daily- for 1 year Hx Substance Use: No substance use type: does not use Exercise / Class Metabolic Activity III < 4 Walking/Shop/Light housework Physical Exam Vital Signs Last Vital Signs Temp 37.0 C 12/28/18 11:41 Pulse 82 12/28/18 11:41 Resp 20 12/28/18 11:41 BP 114/74 12/28/18 11:41 Pulse Ox 91 12/28/18 11:41 Testing Laboratory Results 12/28/18 07:02 12/28/18 10:54 Blood Type O Positive 12/27/18 19:43 Antibody Screen NEGATIVE 12/27/18 19:43 PT 11.1 Seconds (9.0-12.0) 12/27/18 16:55 INR 1.1 (0.9-1.1) 12/27/18 16:55 APTT 24.1 Seconds (21.0-31.0) 12/27/18 16:55 Urine Color Yellow 12/28/18 11:20 Urine Appearance Cloudy (Clear) H 12/28/18 11:20 Urine pH 5.0 (4.5-7.5) 12/28/18 11:20 Ur Specific [place] 1.015 (1.000-1.030) 12/28/18 11:20 Urine Protein 2+ (Negative) H 12/28/18 11:20 Urine Glucose (UA) Negative (Negative) 12/28/18 11:20 Urine Ketones Negative (Negative) 12/28/18 11:20 Urine Nitrite Negative (Negative) 12/28/18 11:20 Ur Leukocyte Esterase Negative (Negative) 12/28/18 11:20 Urine WBC (Auto) 10-30 /hpf (0-5) H 12/28/18 11:20 Urine RBC (Auto) 0-4 /hpf (0-4) 12/28/18 11:20 U Hyaline Cast (Auto) 1-5 /lpf (0-5) 12/28/18 11:20 U Epithel Cells (Auto) >30 /lpf (0-5) H 12/28/18 11:20 Urine Bacteria (Auto) Negative (Negative) 12/28/18 11:20
--- NOTE | 2018-12-28 13:26 | Anesthesiology Consultation ---
Date of Service December 28, 2018 Assessment & Plan Chart Review Chart Review: Acceptable Risk for Surgery and Patient NOT seen in Pre Admission Testing Consults Requested none ASA ASA4 Proposed Anesthesia Anesthesia Type: General and Spinal NPO Date Last Intake of Fluids: 12/28/18 Time Last Intake of Fluids: 07:40 Last Intake of Fluids Comment: sip of water with medication Date Last Intake of Solids: 12/27/18 Time Last Intake of Solids: 11:30 History Surgery Operation Date: 12/28/18 07:20 Proposed Procedures p Left Hip Hemiarthroplasty - Louie Nieves MD Height/Weight Height: 5 ft 8 in Weight: 70.2 kg Allergies Allergy/AdvReac Type Severity Reaction Status Date / Time No Known Allergies Allergy Verified 12/27/18 19:27 Medications Home Medications Medication Instructions Recorded Confirmed Last Taken amlodipine 5 mg PO .QPM/UD PRN 12/27/18 12/27/18 Unknown metoprolol succinate 25 mg PO QAM 12/27/18 12/27/18 Unknown Active Medications Generic Name Dose Route Start Last Admin Trade Name Freq PRN Reason Stop Dose Admin Amlodipine Besylate 5 mg 12/27/18 22:45 12/27/18 23:37 Norvasc PO 01/26/19 22:44 5 mg PM CHARLES Administration Sodium Bicarbonate 75 meq/ 1,075 mls @ 100 mls/hr 12/28/18 13:00 12/28/18 13: 21 Sodium Chloride IV 01/27/19 12:59 100 mls/hr .[id number] CHARLES Administration Metoprolol Succinate 25 mg 12/28/18 09:00 12/28/18 07:35 Toprol Xl PO 01/27/19 08:59 25 mg QAM CHARLES Administration Morphine Sulfate 4 mg 12/27/18 22:21 12/28/18 05:21 Morphine Sulfate IV 01/10/19 22:20 4 mg Q2H PRN Administration Pain Past Medical History Medical History Aortic aneurysm (Resolved) COPD (chronic obstructive pulmonary disease) Diabetes HTN (hypertension) Heart attack Past Anesthesia History No Hx of Anesthesia Complications and No Family Hx of Anesthesia Complications History of PONV No Motion Sickness Screening History of Motion Sickness: No Social History Smoking Status: Former smoker Smoking cigarettes per day: quit 5 years ago Do You Dip or Chew Tobacco: No Alcohol type: beer Alcohol Intake Frequency Comment: 1 beer a day instead of an aspirin daily- for 1 year Hx Substance Use: No substance use type: does not use Exercise / Class Metabolic Activity III < 4 Walking/Shop/Light housework Physical Exam Vital Signs Last Vital Signs Temp 37.0 C 12/28/18 11:41 Pulse 82 12/28/18 11:41 Resp 20 12/28/18 11:41 BP 114/74 12/28/18 11:41 Pulse Ox 91 12/28/18 11:41 Testing Electrocardiogram Date: 12/28/18 Findings: + NSR @ (SR at 89 w/ frequent PVC's) and + NSST changes Chest X-Ray Date: 12/27/18 Findings: + other (right apical opacity) Laboratory Results 12/28/18 07:02 12/28/18 10:54 Blood Type O Positive 12/27/18 19:43 Antibody Screen NEGATIVE 12/27/18 19:43 PT 11.1 Seconds (9.0-12.0) 12/27/18 16:55 INR 1.1 (0.9-1.1) 12/27/18 16:55 APTT 24.1 Seconds (21.0-31.0) 12/27/18 16:55 Urine Color Yellow 12/28/18 11:20 Urine Appearance Cloudy (Clear) H 12/28/18 11:20 Urine pH 5.0 (4.5-7.5) 12/28/18 11:20 Ur Specific [place] 1.015 (1.000-1.030) 12/28/18 11:20 Urine Protein 2+ (Negative) H 12/28/18 11:20 Urine Glucose (UA) Negative (Negative) 12/28/18 11:20 Urine Ketones Negative (Negative) 12/28/18 11:20 Urine Nitrite Negative (Negative) 12/28/18 11:20 Ur Leukocyte Esterase Negative (Negative) 12/28/18 11:20 Urine WBC (Auto) 10-30 /hpf (0-5) H 12/28/18 11:20 Urine RBC (Auto) 0-4 /hpf (0-4) 12/28/18 11:20 U Hyaline Cast (Auto) 1-5 /lpf (0-5) 12/28/18 11:20 U Epithel Cells (Auto) >30 /lpf (0-5) H 12/28/18 11:20 Urine Bacteria (Auto) Negative (Negative) 12/28/18 11:20
[2018-12-28] MEDS ORDERED: NovoLIN-R INSULIN PER UNIT CHARGE ONE (13:57)
[2018-12-28] MEDS ORDERED: DEXTROSE 50% 50 ML SYRINGE IV ONE ×3 (13:57→16:32)
[2018-12-28] MEDS ORDERED: INSULIN HUMAN REGULAR PER UNIT 10 UNITS in SYRINGE 0 ML IV STA (13:59)
[2018-12-28] MEDS ORDERED: BUPIVACAINE/EPINEPHRINE 0.5% MPF 1:200,000 30 ML VIAL ONE (14:09)
[2018-12-28] MEDS ORDERED: BACITRACIN INJ 50,000 UNIT VIAL ONE (14:11)
[2018-12-28] MEDS ORDERED: THROMBIN FOR SOLN 20000 UNIT KIT ONE (14:12)
[2018-12-28] MEDS ORDERED: MIDAZOLAM HCL 1 MG/ML 2ML VIAL ONE (14:22)
[2018-12-28] MEDS ORDERED: KETAMINE HCL INJ 50 MG/ML 10 ML VIAL ONE (14:22)
[2018-12-28] MEDS ORDERED: CEFAZOLIN 2,000 MG/15 ML IV PUSH IV ONE (14:41)
[2018-12-28] MEDS ORDERED: CEFAZOLIN 2000MG 2,000 MG/15 ML SYR IV ONE (15:00)
[2018-12-28] MEDS ORDERED: VASOPRESSIN 20 UNIT/ML VIAL ONE (16:21)
[2018-12-28] MEDS ORDERED: ePHEDrine sulfate 50 MG/ML SYR ONE (16:22)
[2018-12-28] MEDS ORDERED: PROPOFOL IV EMULSION 10 MG/ML 20 ML VIAL IV ONE (16:22)
--- NOTE | 2018-12-28 16:23 | Post Operative Brief Note ---
Immediate Post Op Note v1 Date of Surgery December 28, 2018 Pre & Post Diagnosis Operation Date: 12/28/18 07:20 Pre-Op Diagnosis: LEFT HIP FRACTURE, Post-Op Diagnosis: LEFT HIP FRACTURE, Procedure Operation Date: 12/28/18 07:20 Actual Procedures p Left Hip Hemiarthroplasty(Left) - Louie Nieves MD Surgeon Louie Nieves MD [employer] Shari, PAC Estimated Blood Loss 200 Findings Consistent with Post-Op Diagnosis Fluids 250 cc albumin + 1000 cc crytalloid Specimens Left Femoral Head Drains Hemovac Drain Anesthesia Type Spinal MAC Complications none Disposition Accompanied Patient To Recovery: Yes Disposition: Recovery Room
[2018-12-28] MEDS ORDERED: ePHEDrine sulfate 50 MG/ML AMP IV PRN (16:32)
[2018-12-28] MEDS ORDERED: ATROPINE SULFATE 0.1 MG/ML 10ML SYR IV PRN (16:32)
[2018-12-28] MEDS ORDERED: DEXTROSE 50% 50 ML SYRINGE IV STA (16:33)
[2018-12-28 16:57] LABS: iSTAT Hemoglobin 11.6 g/dl (14.0-18.0); iSTAT Ionized Calcium 1.21 mmol/l (1.12-1.32)
--- NOTE | 2018-12-28 17:16 | XRay Report ---
XR hip LT min 2V CLINICAL HISTORY: Post-Operative implant position COMPARISON STUDY: Left hip 12/27/2018. FINDINGS: Status post left hip hemiarthroplasty. The hardware appears intact. No fracture or dislocat ion within the visualized osseous structures. Skin karrie are in place. Partially visualized aortobi iliac stent. Mild vascular calcifications. The ventricles are osteopenic. IMPRESSION: Status post left hip hemiarthroplasty. No evidence for hardware complication. Electronically signed by: Raf Lua M.D. 12/28/2018 5:15 PM
--- NOTE | 2018-12-28 17:25 | Anesthesiology Progress Note ---
Date of Service December 28, 2018 Anesthesia Post Procedure Vital Signs Vital Signs: Temp Pulse Pulse Pulse Resp BP BP 12/28/18 17:15 94 H 18 113/62 12/28/18 17:05 36.7 C 96 H 19 119/65 12/28/18 16:55 89 20 122/57 L 12/28/18 16:45 88 16 118/63 12/28/18 16:35 86 19 100/66 12/28/18 16:27 36.8 C 89 18 97/79 L 12/28/18 13:50 36.6 C 88 22 124/75 12/28/18 11:41 37.0 C 82 20 114/74 12/28/18 07:15 36.5 C 86 18 116/61 12/28/18 01:21 133/76 12/27/18 22:27 37.3 C 91 H 18 165/79 H 12/27/18 21:31 107 H 21 127/60 12/27/18 21:30 107 H 22 12/27/18 21:01 102 H 21 133/73 12/27/18 21:00 104 H 19 12/27/18 20:31 99 H 19 134/79 12/27/18 20:30 106 H 22 12/27/18 20:01 95 H 20 124/65 12/27/18 20:00 99 H 21 12/27/18 19:31 110 H 19 154/69 H 12/27/18 19:30 110 H 21 12/27/18 19:00 105 H 22 158/86 H 12/27/18 18:31 113 H 22 153/89 H 12/27/18 18:30 104 H 20 12/27/18 18:05 106 H 16 12/27/18 18:03 126 H 19 12/27/18 18:02 156/76 H 12/27/18 17:30 105 H 19 BP Pulse Ox 12/28/18 17:15 94 12/28/18 17:05 93 12/28/18 16:55 100 12/28/18 16:45 100 12/28/18 16:35 100 12/28/18 16:27 100 12/28/18 13:50 92 12/28/18 11:41 91 12/28/18 07:15 92 12/28/18 01:21 97 12/27/18 22:27 92 12/27/18 21:31 93 12/27/18 21:30 93 12/27/18 21:01 94 12/27/18 21:00 94 12/27/18 20:31 93 12/27/18 20:30 93 12/27/18 20:01 93 12/27/18 20:00 93 12/27/18 19:31 92 12/27/18 19:30 91 12/27/18 19:00 95 12/27/18 18:31 95 12/27/18 18:30 98 12/27/18 18:05 156/76 H 96 12/27/18 18:03 95 12/27/18 18:02 96 12/27/18 17:30 95 Pain Intensity Left Hip: Pain Intensity: 0 Notes Mental Status: alert / awake / arousable Patient Amnestic to Procedure: Yes Nausea / Vomiting: adequately controlled Pain: adequately controlled Airway Patency, RR, SpO2: stable & adequate BP & HR: stable & adequate Hydration State: stable & adequate Neuraxial Anesthesia: was administered and sensory block is resolving Anesthetic Complications: no major complications apparent
[2018-12-28] MEDS ORDERED: BISACODYL 10 MG SUPP PR PRN (18:16)
[2018-12-28] MEDS ORDERED: HYDROmorphone INJ 0.5 MG/0.5 ML SYR IV PRN (18:16)
[2018-12-28] MEDS ORDERED: NALOXONE HCL 0.4 MG/1 ML VIAL/CARP IV PRN (18:16)
[2018-12-28] MEDS ORDERED: MAGNESIUM HYDROXIDE SUSP 30 ML UDC PO PRN (18:16)
[2018-12-28] MEDS ORDERED: ONDANSETRON INJ 2 MG/ML 2 ML VIAL IV PRN (18:16)
[2018-12-28 19:42] LABS: BUN Creatinine Ratio 18.3 (10-20); Calcium 7.8 mg/dl (8.5-10.1); Creatinine Clr Calc Pharmacy 16.9 ml/min; Est GFR (African American) 20.2; Est GFR (Non-African American) 17.5
[2018-12-28 19:55] LABS: Hematocrit (blood only) 30.9 % (42-52)
--- NOTE | 2018-12-28 20:21 | Operative Report ---
DATE OF OPERATION: 12/28/2018 SURGEON: Louie Nieves MD CAFE WORKER: BREANNA Ferrer PREOPERATIVE DIAGNOSES: 1. Left displaced femoral neck fracture. 2. Left stable pelvis fracture. POSTOPERATIVE DIAGNOSES: 1. Left displaced femoral neck fracture. 2. Left stable pelvis fracture. PROCEDURE PERFORMED: Left cemented bipolar hip arthroplasty. COMPLICATIONS: None. ESTIMATED BLOOD LOSS: 200 mL. FLUID REPLACEMENT: 250 mL of Colloid and 1000 mL crystalloid. ANESTHESIA: Spinal. DRAINS: None. SPECIMENS: Left femoral head sent for Pathology. OPERATIVE INDICATIONS: This 83-year-old gentleman with multiple medical comorbidities, but an independent ambulator who sustained a fall in his driveway yesterday. He had a pretty severe fall on his left side and he had a pretty significant facial injury. He was seen in the Emergency Room and admitted to the Hospitalist Service. He was medically optimized and indicated for a treatment of his displaced femoral neck fracture. He had no preexisting hip pain. His pelvis fracture was stable. OPERATIVE IMPLANTS: Operative implants consisted of, 1. A Biomet generation 4 size 11 high offset polished femoral stem. 2. A +3/28 mm articular ball. 3. A 52 mm bipolar shell and liner. 4. A size 12 centralizer. 5. Small cement restrictor. OPERATIVE PROCEDURE: The patient was taken to the Operating Room, identified and placed on the Operating Room table in supine position. All contact areas were appropriately padded. I.V. antibiotics followed by Anesthesia team. A spinal anesthetic had been implemented in the Holding Area. The patient was then placed in the right lateral decubitus position. An axillary roll was placed. Stlberg hip positioner was used for positioning. The left hip was then scrubbed with Hibiclens and then prepped with ChloraPrep and draped in usual sterile fashion. A posterolateral approach of the left hip was then performed through a curvilinear incision centered over the greater trochanter. Sharp dissection was carried through the subcutaneous tissues down to the level of the IT band and gluteal fascia. The IT band and gluteal fascia were then incised longitudinally in line with skin incision. The underlying greater trochanteric bursa was identified. There was quite a bit of hemorrhage in the bursa in the external rotators. I did tag the external rotators and take them off the posterior aspect of the hip joint capsule very carefully. Great care was taken throughout the procedure to protect the sciatic nerve. Posterior capsulotomy was then performed leaving 2 flaps for later repair. Hip was internally rotated. Femoral neck osteotomy cut was made about a centimeter above the lesser trochanter at the base of the fracture. The remaining femoral neck as well as the femoral head were removed. The acetabulum was sized to a size 52. Attention was then drawn to the femur. The proximal femur was entered with cookie cutter followed by canal finder and lateralizing reamer. Prior to closure, broached beginning with a size 7 progressing up to 11. We got good fit at 11. I then trialed the hip. The +3 high offset stem fit most appropriately. Leg lengths seemed equal. Soft tissue tension was appropriate. Hip was fully stable in full extension and external rotation, flexion to 90 degrees and internal rotation to [address] We elected to place these implants. All trial implants were removed. A small cement restrictor was placed 15 cm down the canal. The canal was irrigated. It was dried. A double batch of [place] G cement was mixed and then injected in the canal. A Biomet generation 4 size 11 high offset stem with a 12 centralizer was then placed in about 10-15 degrees of anteversion. All extraneous cement was removed. Once the cement hardened, a +3/28 mm articular ball was placed followed by 52 bipolar shell and liner. Hip was located and once again found to be stable. Attention was then drawn toward closing. The wound was irrigated with copious amounts of pulse lavage solution. I did inject locally with 60 mL of 0.5% Marcaine with epinephrine. The posterior capsule was then closed with #2 Ti-Cron suture in a [id number] fashion. The external rotators were reattached to the posterior aspect of the hip abductors with #2 Ti-Cron suture. The IT band and gluteal fascia were then closed in 1-0 PDS running fashion. The subcutaneous tissue was then closed in 2 layers with deep layer #1 Vicryl suture and subcutaneous tissues with 2-0 Dexon suture in a buried interrupted fashion. The skin was then closed with skin karrie. Leg was then cleaned and dried and a sterile dressing of Xeroform, 4 x 4, ABD pad and foam tape was applied. The patient was then transferred to the Recovery Room in a stable condition. The patient tolerated the procedure well with no complications. All needle and sponge counts were correct at the end of the operation. I attest to the content of the Intraoperative Record and any orders documented therein. Any exception s are noted below.
[2018-12-28] MEDS: ASPIRIN 81 MG ECTAB PO SCH (20:41)
[2018-12-28] MEDS: AMLODIPINE BESYLATE 5 MG TAB PO SCH (20:41)
[2018-12-28] MEDS: CEFAZOLIN 1000MG 1,000 MG/7.5 ML SYR IV SCH (22:38)
[2018-12-29] MEDS: SODIUM BICARBONATE 8.4% 75 MEQ in SODIUM CHLORIDE 0.45 % 1,000 ML IV SCH ×3 (04:15→21:33)
[2018-12-29] MEDS: CEFAZOLIN 1000MG 1,000 MG/7.5 ML SYR IV SCH (06:06)
[2018-12-29 06:49] LABS: Hematocrit (blood only) 27.7 % (42-52); Hemoglobin 8.8 g/dL (14.0-18.0); Mean Corpuscular Hgb Conc 31.8 g/dL (32-36); Mean Corpuscular Volume 91.4 fL (80-100); Mean Platelet Volume 8.8 fL (7.4-10.4); Platelet Count 175 K/uL (130-400); RDW Coefficient of Variation 14.5 % (11.5-14.5); RDW Standard Deviation 48.2 fL (36.4-46.3); Red Blood Count 3.03 M/uL (4.7-6.1); White Blood Count 12.17 K/uL (4.8-10.8)
[2018-12-29 07:14] LABS: Basophils # (auto) 0.05 K/uL (0-0.2); Basophils % (auto) 0.4 %; Eosinophils # (auto) 0.06 K/uL (0-0.5); Eosinophils % (auto) 0.5 %; Immature Granulocytes # (auto) 0.07 K/uL (0.00-0.02); Immature Granulocytes % (auto) 0.6 %; Lymphocytes # (auto) 1.16 K/uL (1.2-3.4); Lymphocytes % (auto) 9.5 %; Monocytes # (auto) 1.17 K/uL (0.11-0.59); Monocytes % (auto) 9.6 %; Neutrophils # (auto) 9.66 K/uL (1.4-6.5); Neutrophils % (auto) 79.4 %; RBC Morphology Unremarkable
[2018-12-29 07:19] LABS: BUN Creatinine Ratio 18.6 (10-20); Calcium 7.4 mg/dl (8.5-10.1); Est GFR (African American) 18.9; Est GFR (Non-African American) 16.3; Potassium 5.3 mmol/L (3.5-5.1)
[2018-12-29] MEDS ORDERED: SODIUM POLYSTYRENE SULFONATE 15G/60ML SUSP PO STA (07:52)
[2018-12-29] MEDS: METOPROLOL SUCC 25MG EXT REL TAB PO SCH (08:22)
[2018-12-29] MEDS: ASPIRIN 81 MG ECTAB PO SCH ×2 (08:23→20:33)
[2018-12-29] MEDS: FERROUS SULFATE 325 MG TAB PO SCH ×2 (08:25→20:32)
--- NOTE | 2018-12-29 10:24 | Anesthesiology Progress Note ---
Date of Service December 29, 2018 Anesthesia Post Procedure Vital Signs Vital Signs: Temp Pulse Pulse Pulse Pulse Pulse Resp 12/29/18 07:31 36.7 C 72 22 12/29/18 04:22 36.5 C 71 21 12/29/18 04:00 12/29/18 00:59 89 12/28/18 23:54 36.5 C 85 19 12/28/18 19:30 37.0 C 88 20 12/28/18 19:15 36.6 C 90 90 20 12/28/18 18:45 36.9 C 88 12/28/18 18:16 36.9 C 88 12/28/18 18:00 87 12/28/18 17:45 36.9 C 91 H 22 12/28/18 17:15 94 H 18 12/28/18 17:05 36.7 C 96 H 19 12/28/18 16:55 89 20 12/28/18 16:45 88 16 12/28/18 16:35 86 19 12/28/18 16:27 36.8 C 89 18 12/28/18 13:50 36.6 C 88 12/28/18 11:41 37.0 C 82 20 BP BP Pulse Ox Pulse Ox 12/29/18 07:31 104/62 96 12/29/18 04:22 102/58 L 92 12/29/18 04:00 95 12/29/18 00:59 12/28/18 23:54 105/65 94 12/28/18 19:30 98/55 L 94 12/28/18 19:15 112/69 98 12/28/18 18:45 120/67 95 12/28/18 18:16 120/67 95 12/28/18 18:00 112/67 90 12/28/18 17:45 114/68 93 12/28/18 17:15 113/62 94 12/28/18 17:05 119/65 93 12/28/18 16:55 122/57 L 100 12/28/18 16:45 118/63 100 12/28/18 16:35 100/66 100 12/28/18 16:27 97/79 L 100 12/28/18 13:50 124/75 92 12/28/18 11:41 114/74 91 Pain Intensity Left Hip: Pain Intensity: 0 Notes Mental Status: alert / awake / arousable Nausea / Vomiting: adequately controlled Pain: adequately controlled Airway Patency, RR, SpO2: stable & adequate BP & HR: stable & adequate Hydration State: stable & adequate Neuraxial Anesthesia: was administered and sensory block resolved Anesthetic Complications: no major complications apparent and Pt Satisfied with anesthetic care
--- NOTE | 2018-12-29 10:43 | Nephrology Progress Note ---
Date of Service December 29, 2018 Assessment & Plan (1) Chronic kidney disease, stage 4 (severe): -- Baseline creatinine has been 2.6. Kidney function remains stable at this time. Will monitor (2) Hyperkalemia: -- Mild hyperkalemia. This has been a chronic problem. Will provide gentle hydration and add bicarbonate to IVF to shift potassium intracellularly. -- Kayexelate has been administered by primary service this am -- Will edit diet order to include low potassium restriction -- Recheck PRP in am (3) Closed left hip fracture: -- s/p L femur hemiarthroplasty 12/28/18 (4) Lung nodule: -- CT reports reviewed. 2.5 cm spiculated lesion in R apical lung concerning for malignancy. Patient will require Pulmonology evaluation once recovered from hip fracture Subjective Mr. Dejesus was seen and examined in his hospital room this morning. He had just taken his Kayexelate and was drinking orange juice this morning. He currently denies angina, dyspnea or uremic symptoms Respiratory: no dyspnea Cardiovascular: no chest pain Gastrointestinal: no abdominal pain and no diarrhea/loose stools Physical Exam 2 Vital Signs (Past 24 Hours): Last Vital Signs Temp 36.7 C 12/29/18 07:31 Pulse 72 12/29/18 07:31 Resp 22 12/29/18 07:31 BP 104/62 12/29/18 07:31 Pulse Ox 96 12/29/18 07:31 Eyes: PERRL, conjunctivae normal, anicteric sclerae Neck: trachea midline, no thyromegaly Respiratory: normal respiratory effort, lungs clear to auscultation Cardiovascular: RRR, no murmur, no edema Gastrointestinal (Abdomen): normal bowel sounds, soft, nontender, no hepatosplenomegaly Skin: + turgor decreased Trauma: + evidence of skin trauma and + laceration (scalp) Results & Data Laboratory Results Laboratory Tests 12/29/18 12/29/18 06:28 06:28 WBC 12.17 H Hgb 8.8 L Hct 27.7 L Plt Count 175 Sodium 136 Potassium 5.3 H Chloride 104 Carbon Dioxide 23 BUN 61 H Creatinine 3.27 H _ (1) Closed left hip fracture Encounter type: initial encounter Fracture healing: Qualified Code(s): S72.002A - Fracture of unspecified part of neck of left femur, initial encounter for closed fracture
--- NOTE | 2018-12-29 12:18 | Cardiology Progress Note ---
Date of Service December 29, 2018 Assessment & Plan (1) CAD (coronary artery disease): (2) S/P AAA repair: (3) Closed left hip fracture: (4) Lung nodule: Patient doing well status post orthopedic intervention for hip fracture yesterday having had a mechanical fall prompting who fracture and then head trauma. Nephrology input noted and appreciated. Mild postoperative acute blood loss anemia with hemoglobin 8.8 noted. Patient on DVT prophylaxis per orthopedic service including aspirin 81 milligrams twice daily compression stockings. Continue to follow. Subjective Chief complaint: Postoperative cardiology follow-up Subjective: Patient sitting up in chair out of bed. He is much more comfortable than yesterday. He tolerated the orthopedic procedure well from a hemodynamic standpoint it is pain is well controlled at present. Telemetry reveals sinus rhythm at just about 100 beats per minute with PACs. Mild hyperkalemia with level 5.3 noted this morning and the patient received Kayexalate at 8:25 a.m.. Intravenous sodium bicarb minute currently infusing at 100 mL/hour. Physical Exam 2 Vital Signs (Past 24 Hours): Last Vital Signs Temp 37.3 C 12/29/18 11:07 Pulse 70 12/29/18 11:07 Resp 19 12/29/18 11:07 BP 95/54 L 12/29/18 11:07 Pulse Ox 98 12/29/18 11:07 Constitutional: + thin; no acute distress Respiratory: normal respiratory effort, lungs clear to auscultation Cardiovascular: RRR, no murmur, no edema Vessels: no JVD Extremities: no edema Neurologic: Patient conversant, moves extremities on command, no focal neurologic deficits _ (1) CAD (coronary artery disease) Coronary Disease-Associated Artery/Lesion type: [place] artery [place] vs. transplanted heart: [place] heart Associated angina: without angina Qualified Code(s): I25.10 - Atherosclerotic heart disease of [place] coronary artery without angina pectoris (2) Closed left hip fracture Encounter type: initial encounter Fracture healing: Qualified Code(s): S72.002A - Fracture of unspecified part of neck of left femur, initial encounter for closed fracture
--- NOTE | 2018-12-29 13:14 | Progress Note ---
DATE: 12/29/2018 SUBJECTIVE: An 83-year-old gentleman postop day 1 from a left cemented bipolar hip arthroplasty for fracture. He also has a stable pelvis fracture. He is doing relatively well. Not much pain when he is sitting up in a chair but has more pain with weightbearing. Denies any other new complaints. Isolated hip pain. OBJECTIVE: VITAL SIGNS: Temperature is 37.3. Vital signs stable. PHYSICAL EXAMINATION: GENERAL: Reveals a pleasant elderly male. He is sitting up in his bedside chair, looks pretty comfortable. He is awake, alert and oriented. EXTREMITIES: Examination of the left lower extremity reveals leg lengths are equal. Hip is located. Dressing is clean, dry, and intact. He is neurologically intact. He can dorsiflex and plantarflex his foot appropriately. LABORATORY DATA: Hemoglobin 8.8. Hematocrit 27.7. White cell count 12.17. Electrolytes reveal potassium of 5.3. Creatinine 3.27. ASSESSMENT: An 83-year-old gentleman with multiple medical comorbidities, postoperative day 1 from a left cemented bipolar hip arthroplasty for a displaced femoral neck fracture. He also has a stable pelvis fracture on this left side. He has got multiple other medical issues, which appeared to be relatively stable. Potassium is still a little bit high. PLAN: 1. DVT prophylaxis including thigh-high TEDs, SCDs, and we would recommend aspirin 81 mg twice a day if okay medically. 2. PT/OT. He can weightbear as tolerated in the left lower extremity. He is going to certainly have more pain as a result of the stable pelvis fracture for the next 4 weeks. 3. Medical management as per the medicine service. 4. Disposition: He is orthopedically stable and acceptable for discharge any time medically stable. Any orthopedic questions can be directed to me at [phone].
--- NOTE | 2018-12-29 18:37 | Hospitalist Progress Note ---
Date of Service December 29, 2018 Assessment & Plan (1) Closed left hip fracture: POD #1, s/p ORIF by Dr. Louie Nievse. Appreciate his assistance. DVT proph - asa 81mg BID. Pain control. Path pending, but Dr. Nieves and I spoke and bone did not appear to have cancer grossly. PT, OT -- will almost certainly need rehab. (2) Acute head injury: CT head, fortunately, w/o acute findings. Had head laceration s/p repair. Sutures will need to be removed in about 1 week. (3) Facial laceration: s/p repair (4) Leukocytosis: 2nd to stress of fall and injuries? urine cx thus far neg chest imaging w/o signs of pneumonia. repeat CBC improved. no infectious sx's on history/exam today. (5) COPD (chronic obstructive pulmonary disease): not in exacerbation at this time (6) Hypertension: continue home meds (7) Hyperlipidemia: (8) CAD (coronary artery disease): aspirin continue beta sylvia no ischemic symptoms at this time tele thus far stable if tele is normal overnight and K is normal by the AM can d/c tele tomorrow (9) Lung nodule: RUL, highly suspicious for lung ca uncertain if patient will want to pursue Rx for this but suspect he will not want to (10) Chronic kidney disease, stage 4 (severe): baseline Cr about 2.5/2.6 superimposed DESTINY - granular casts on u/a suggestive of ATN supportive care BMP am appreciate nephrology consultation cut fluid rate to 50cc/hr with bicarb infusion (11) Hyperkalemia: kayexalate 15gm x 1 cont bicarb drip bmp in am high K 2nd to DESTINY (12) Acute kidney injury: in setting of fall with hip fracture supportive care, IV fluids, etc likely ATN appreciate nephrology consultation BMP am (13) Acute blood loss anemia: 2nd to hip fracture and repair cbc am ferrious sulfate supplementation (14) DVT prophylaxis: asa 81mg bid PT, OT when able likely to need rehab after d/c Subjective patient w/o significant complaints except for the hip pain tele stable overnight no headaches no cp no dyspnea Constitutional: no fever Respiratory: no cough Cardiovascular: + orthopnea; no chest pain and no paroxysmal nocturnal dyspnea Gastrointestinal: no abdominal pain Physical Exam 2 Vital Signs (Past 24 Hours): Last Vital Signs Temp 36.5 C 12/29/18 15:18 Pulse 92 H 12/29/18 15:18 Resp 20 12/29/18 15:18 BP 114/66 12/29/18 15:18 Pulse Ox 96 12/29/18 15:18 Constitutional: + ill appearing and average body habitus; no acute distress ENMT: external ear and nose normal, oropharynx normal Respiratory: normal respiratory effort, lungs clear to auscultation Cardiovascular: Rate/Rhythm: regular rate and regular rhythm Heart Sounds: normal S1 and normal S2; no murmur Vessels: posterior tibial pulses present and dorsalis pedis pulses present Extremities: no edema Gastrointestinal (Abdomen): normal bowel sounds, soft, nontender, no hepatosplenomegaly Skin: multiple abrasions on face; large dressing left forehead ecchymoses on face as well Psychiatric: Orientation: alert Results & Data Laboratory Results Laboratory Results - last 24 hr 12/29/18 12/29/18 06:28 06:28 WBC 12.17 H RBC 3.03 L Hgb 8.8 L Hct 27.7 L MCV 91.4 MCH 29.0 MCHC 31.8 L RDW Std Deviation 48.2 H RDW Coeff of [place] 14.5 Plt Count 175 MPV 8.8 Immature Gran % (Auto) 0.6 Neut % (Auto) 79.4 Lymph % (Auto) 9.5 [place] % (Auto) 9.6 Eos % (Auto) 0.5 Baso % (Auto) 0.4 Immature Gran # (Auto) 0.07 H Neut # (Auto) 9.66 H Lymph # (Auto) 1.16 L [place] # (Auto) 1.17 H Eos # (Auto) 0.06 Baso # (Auto) 0.05 RBC Morphology Unremarkable Sodium 136 Potassium 5.3 H Chloride 104 Carbon Dioxide 23 Anion Gap 8.0 BUN 61 H Creatinine 3.27 H Est Cr Clr Drug Dosing 16.0 Est GFR ( Amer) 18.9 Est GFR (Non-Af Amer) 16.3 BUN/Creatinine Ratio 18.6 Glucose 114 H Calcium 7.4 L _ (1) Acute head injury Encounter type: initial encounter Qualified Code(s): S09.90XA - Unspecified injury of head, initial encounter (2) CAD (coronary artery disease) Associated angina: without angina Coronary Disease-Associated Artery/Lesion type: [place] artery [place] vs. transplanted heart: [place] heart Qualified Code (s): I25.10 - Atherosclerotic heart disease of [place] coronary artery without angina pectoris (3) Hyperlipidemia Hyperlipidemia type: mixed hyperlipidemia Qualified Code(s): E78.2 - Mixed hyperlipidemia (4) Leukocytosis Leukocytosis type: unspecified Qualified Code(s): D72.829 - Elevated white blood cell count, unspecified (5) Facial laceration Encounter type: initial encounter Qualified Code(s): S01.81XA - Laceration without foreign body of other part of head, initial encounter (6) COPD (chronic obstructive pulmonary disease) COPD type: unspecified COPD Chronic bronchitis type: Emphysema type: Qualified Code(s): J44.9 - Chronic obstructive pulmonary disease, unspecified (7) Hypertension Hypertension type: essential hypertension Qualified Code(s): I10 - Essential (primary) hypertension (8) Closed left hip fracture Encounter type: initial encounter Fracture healing: Qualified Code(s): S72.002A - Fracture of unspecified part of neck of left femur, initial encounter for closed fracture
[2018-12-29] MEDS: AMLODIPINE BESYLATE 5 MG TAB PO SCH (20:31)
[2018-12-30] MEDS ORDERED: Nursing to Pharmacy Communication ONE (05:32)
[2018-12-30] MEDS ORDERED: POLYETHYLENE (MIRALAX) 17 GM PACK PO SCH (06:00)
[2018-12-30 06:48] LABS: Basophils # (auto) 0.04 K/uL (0-0.2); Basophils % (auto) 0.3 %; Eosinophils # (auto) 0.16 K/uL (0-0.5); Eosinophils % (auto) 1.3 %; Hematocrit (blood only) 24.5 % (42-52); Hemoglobin 7.8 g/dL (14.0-18.0); Immature Granulocytes # (auto) 0.06 K/uL (0.00-0.02); Immature Granulocytes % (auto) 0.5 %; Lymphocytes # (auto) 1.27 K/uL (1.2-3.4); Lymphocytes % (auto) 10.5 %; Mean Corpuscular Hgb Conc 31.8 g/dL (32-36); Mean Corpuscular Volume 90.1 fL (80-100); Mean Platelet Volume 9.3 fL (7.4-10.4); Monocytes # (auto) 1.31 K/uL (0.11-0.59); Monocytes % (auto) 10.8 %; Neutrophils # (auto) 9.25 K/uL (1.4-6.5); Neutrophils % (auto) 76.6 %; Platelet Count 173 K/uL (130-400); RDW Coefficient of Variation 14.9 % (11.5-14.5); RDW Standard Deviation 48.7 fL (36.4-46.3); Red Blood Count 2.72 M/uL (4.7-6.1); White Blood Count 12.09 K/uL (4.8-10.8)
[2018-12-30 07:29] LABS: BUN Creatinine Ratio 19.3 (10-20); Calcium 7.1 mg/dl (8.5-10.1); Creatinine Clr Calc Pharmacy 18.6 ml/min; Est GFR (African American) 22.7; Est GFR (Non-African American) 19.6; Potassium 4.3 mmol/L (3.5-5.1)
--- NOTE | 2018-12-30 07:57 | Progress Note ---
DATE: 12/30/2018 SUBJECTIVE: An 83-year-old gentleman postop day 2 from a left cemented bipolar hip arthroplasty for fracture. He is doing pretty well. Denies any significant pain this morning. No new complaints. OBJECTIVE: VITAL SIGNS: Temperature 36.4. Vital signs stable. GENERAL: Physical examination reveals a pleasant elderly male. He is lying in bed, looks pretty comfortable. EXTREMITIES: Examination of left hip and leg reveals the dressing to be clean, dry and intact. Leg lengths were equal. Thigh is soft and supple. No significant drainage. He is neurologically intact. Hip is located. LABORATORY DATA: Hemoglobin 7.8. Hematocrit 24.5. White cell count 12.09. Electrolytes are pending. ASSESSMENT: An 83-year-old gentleman with multiple medical comorbidities postop day 2 from a left cemented bipolar hip arthroplasty for fracture with an associated pelvic ring fracture on the same side. Seems to be doing pretty well this morning. He is anemic, but currently without symptoms. Some labs are still pending. PLAN: 1. DVT prophylaxis including thigh-high TEDs, SCDs, and would recommend aspirin if medically okay. 2. PT/OT. Weightbear as tolerated. Left total hip protocol. Certainly, give him more trouble due to this pelvic fracture. 3. Pelvic fracture. Weightbear as tolerated. No restrictions from that standpoint. He should obey hip precautions. 4. Medical management as per the medicine service. 5. Disposition: He is orthopedically acceptable for discharge any time medically stable. I need to see him back 2 weeks postop. Any orthopedic questions can be directed to me at [phone].
[2018-12-30] MEDS: METOPROLOL SUCC 25MG EXT REL TAB PO SCH (08:52)
[2018-12-30] MEDS: FERROUS SULFATE 325 MG TAB PO SCH ×2 (08:52→20:20)
[2018-12-30] MEDS: ASPIRIN 81 MG ECTAB PO SCH ×3 (08:53→20:23)
--- NOTE | 2018-12-30 09:59 | Nephrology Progress Note ---
Date of Service December 30, 2018 Assessment & Plan (1) Chronic kidney disease, stage 4 (severe): -- Baseline creatinine has been 2.6. Kidney function remains relatively stable at this time. Will monitor (2) Hyperkalemia: -- Hyperkalemia has resolved. Will stop IVF and monitor -- Diet has been adjusted to include low potassium restriction -- Recheck PRP in am (3) Closed left hip fracture: -- s/p L femur hemiarthroplasty 12/28/18 (4) Anemia: -- Hgb is trending down. Recommend transfusion to maintain Hgb > 8.0 (5) Lung nodule: -- CT reports reviewed. 2.5 cm spiculated lesion in R apical lung concerning for malignancy. Patient will require Pulmonology evaluation once recovered from hip fracture Subjective Mr. Dejesus was seen and examined in his hospital room this morning. He currently denies angina, dyspnea or uremic symptoms Physical Exam 2 Vital Signs (Past 24 Hours): Last Vital Signs Temp 37.2 C 12/30/18 08:20 Pulse 82 12/30/18 08:20 Resp 16 12/30/18 08:20 BP 108/62 12/30/18 08:20 Pulse Ox 93 12/30/18 08:20 Eyes: PERRL, conjunctivae normal, anicteric sclerae Neck: trachea midline, no thyromegaly Respiratory: normal respiratory effort, lungs clear to auscultation Cardiovascular: RRR, no murmur, no edema Gastrointestinal (Abdomen): normal bowel sounds, soft, nontender, no hepatosplenomegaly Skin: + turgor decreased Trauma: + evidence of skin trauma and + laceration (scalp) Results & Data Laboratory Results Laboratory Tests 12/30/18 12/30/18 06:09 06:09 WBC 12.09 H Hgb 7.8 L Hct 24.5 L Plt Count 173 Sodium 137 Potassium 4.3 D Chloride 104 Carbon Dioxide 25 BUN 54 H Creatinine 2.81 H D _ (1) Closed left hip fracture Encounter type: initial encounter Fracture healing: Qualified Code(s): S72.002A - Fracture of unspecified part of neck of left femur, initial encounter for closed fracture
--- NOTE | 2018-12-30 10:37 | Cardiology Progress Note ---
Date of Service December 30, 2018 Assessment & Plan (1) CAD (coronary artery disease): Stable chronic coronary heart disease. Patient with mild sinus tachycardia. I believe this is appropriate physiologic response for his level of illness. His blood pressure is borderline low, at this point I recommend we did continue his same prior to hospital dose of oral metoprolol. Continue amlodipine. The patient was not on statin therapy prior to his hospital stay. Per my discussion with him, he definitely prefers a "minimalist" philosophy in terms of desiring to be on as few medications as possible and will keep with this patient goal and remain off statin at this time. Is currently on aspirin 81 mg twice daily, started by the orthopedic surgery service for DVT prophylaxis. I think this is reasonable from a heart disease standpoint as well. (2) S/P AAA repair: Patient has missed his 2 most recent vascular surgery follow-up visits the most recent of which was scheduled for earlier this month. Will help get him back on track if he desires at the conclusion of this hospital stay. (3) Closed left hip fracture: Status post left cemented bipolar hip arthroplasty on 12/28/18. Mild acute blood loss anemia noted hemoglobin down to 7.8 today. We will defer transfusion threshold to the primary service. Would certainly transfuse for hemoglobin of 7, and given his history of coronary heart disease, transfusing to keep hemoglobin above 8 would also be reasonable as noted, this is likely also playing a role with his mild sinus tachycardia. We will continue to monitor. No indication for transfusion at present. (4) Acute blood loss anemia: As noted above. Continue knee-high compression stockings and aspirin for DVT prophylaxis. Patient has also been found to have a 2.8 cm spiculated lung nodule for which assessment will be necessary after he recovers from his hip fracture. Subjective Chief complaint: Follow-up chronic coronary disease, postop cardiology follow-up Subjective: Patient is sitting out of bed in the bedside chair. He is comfortable. He does note that he has pain with movement at his operative site but this is overall well controlled. Telemetry reveals sinus rhythm in the 90- 110 bpm range at rest in the chair. His potassium is trended toward improvement at 4.3 this morning. His creatinine is trended toward improvement having been 3.27 yesterday and 2.81 today. Physical Exam 2 Vital Signs (Past 24 Hours): Last Vital Signs Temp 37.2 C 02/21/19 08:20 Pulse 82 12/30/18 08:20 Resp 16 12/30/18 08:20 BP 108/62 12/30/18 08:20 Pulse Ox 93 12/30/18 08:20 Physical Exam: General: no acute distress, chronically ill in appearance Eyes: Mild ecchymosis noted below the left eye and left forehead, unchanged Neck: normal jugular venous pulse, no hepatojugular reflux Chest: normal shape and normal respiratory effort Lungs: clear to auscultation and percussion Cardiac Exam: - regular heart sounds, no murmurs, rubs, or gallops, no jugular venous distention Abdomen: abdomen soft, non-tender, no abnormal masses and no hepatosplenomegaly Extremities: No significant lower extremity edema Neuro:awake, coversant, follows commands, no focal motor deficits Results & Data Medications Administered Current Inpatient Medications Acetaminophen (Tylenol) 650 mg PO Q4H PRN PRN Reason: pain/fever Stop: 01/26/19 22:20 Al Hydrox/Mg Hydrox/Simethicone (Maalox) 30 ml PO Q6H PRN PRN Reason: Dyspepsia Stop: 01/26/19 22:20 Amlodipine Besylate (Norvasc) 5 mg PO PM [facility] Stop: 01/26/19 22:44 Last Admin: 12/29/18 20:31 Dose: 5 mg Aspirin (Ecotrin Ectab) 81 mg PO BID [facility] Stop: 01/27/19 20:59 Last Admin: 12/30/18 08:53 Dose: Not Given Bisacodyl (Dulcolax) 10 mg IA DAILY PRN PRN Reason: Constipation Stop: 01/27/19 18:15 Ferrous Sulfate (Feosol) 325 mg PO BID [facility] Stop: 01/28/19 08:59 Last Admin: 12/30/18 08:52 Dose: 325 mg Hydromorphone HCl (Dilaudid) 0.25 - 0.5 mg IV Q20M PRN PRN Reason: Moderate/Severe Pain Stop: 01/11/19 18:15 Magnesium Hydroxide (Milk Of Magnesia) 30 ml PO DAILY PRN PRN Reason: Constipation Stop: 01/27/19 18:15 Metoprolol Succinate (Toprol Xl) 25 mg PO QAM [facility] Stop: 01/27/19 08:59 Last Admin: 12/30/18 08:52 Dose: 25 mg Naloxone HCl (Narcan) 0.1 mg IV UD PRN PRN Reason: Opioid Overdose Stop: 01/27/19 18:15 Ondansetron HCl (Zofran) 4 mg IV Q6H PRN PRN Reason: Nausea And Vomiting Stop: 01/27/19 18:15 Polyethylene Glycol (Miralax Powder Packet) 17 gm PO DAILY PRN PRN Reason: Constipation Stop: 01/26/19 22:20 _ (1) CAD (coronary artery disease) Coronary Disease-Associated Artery/Lesion type: [place] artery [place] vs. transplanted heart: [place] heart Associated angina: without angina Qualified Code(s): I25.10 - Atherosclerotic heart disease of [place] coronary artery without angina pectoris (2) Closed left hip fracture Encounter type: initial encounter Fracture healing: Qualified Code(s): S72.002A - Fracture of unspecified part of neck of left femur, initial encounter for closed fracture
[2018-12-30] MEDS ORDERED: SODIUM CHLORIDE 0.9% 250 ML IV PRN (11:00)
[2018-12-30] MEDS ORDERED: FUROSEMIDE 20 MG in SYRINGE 0 ML IV SCH (12:00)
[2018-12-30 17:40] LABS: Hemoglobin 9.3 g/dL (14.0-18.0)
--- NOTE | 2018-12-30 20:03 | Hospitalist Progress Note ---
Date of Service December 30, 2018 Assessment & Plan (1) Closed left hip fracture: POD #2, s/p ORIF by Dr. Louie Nieves. Appreciate his assistance. DVT proph - asa 81mg BID. Pain control. Path pending, but Dr. Nieves and I spoke and bone did not appear to have cancer grossly. PT, OT. Needs rehab. Vitamin D level was 22 in 10/2018 - supplement vitamin D daily. (2) Acute head injury: CT head w/o acute findings. Had head laceration s/p repair. Sutures will need to be removed in about 1 week. (3) Facial laceration: s/p repair (4) Leukocytosis: Improved. WBC count nearly normal. Urine cx neg. No pneumonia on chest CT. Likely due to stress of hip fracture. (5) COPD (chronic obstructive pulmonary disease): not in exacerbation at this time (6) Hypertension: continue home meds controlled (7) Hyperlipidemia: has declined statin in past (8) CAD (coronary artery disease): aspirin continue beta sylvia no ischemic symptoms at this time (9) Lung nodule: RUL, highly suspicious for lung ca uncertain if patient will want to pursue work-up and/or Rx has lost weight in the last year likely due to this lung ca (10) Chronic kidney disease, stage 4 (severe): baseline Cr about 2.5/2.6 superimposed DESTINY - granular casts on u/a suggestive of ATN ATN improved stop fluids appreciate nephrology consultation (11) Hyperkalemia: 2nd to DESTINY -- resolved (12) Acute kidney injury: resolved (13) Acute blood loss anemia: 2nd to hip fracture and repair also bleeding from facial laceration probably contributed due to dizziness/lightheadedness will Tx 1 unit PRBCs lasix 20mg IV x 1 following repeat CBC am ferrious sulfate supplementation (14) DVT prophylaxis: asa 81mg bid PT, OT needs rehab sister updated by phone today Subjective patient c/o lightheadedness/dizziness no vertigo denies dyspnea c/o left hip pain mainly w/ activity denies cough, chest pain, abd pain Constitutional: no fever Respiratory: no dyspnea Cardiovascular: no orthopnea and no paroxysmal nocturnal dyspnea Gastrointestinal: no abdominal pain, no nausea and no vomiting Physical Exam 2 Vital Signs (Past 24 Hours): Last Vital Signs Temp 37.2 C 12/30/18 19:28 Pulse 94 H 12/30/18 19:28 Resp 18 12/30/18 19:28 BP 119/73 12/30/18 19:28 Pulse Ox 91 12/30/18 19:28 Constitutional: + ill appearing and average body habitus; no acute distress ENMT: external ear and nose normal, oropharynx normal Respiratory: normal respiratory effort, lungs clear to auscultation Cardiovascular: Rate/Rhythm: regular rate and regular rhythm Heart Sounds: normal S1 and normal S2; no murmur Vessels: posterior tibial pulses present and dorsalis pedis pulses present Extremities: no edema Gastrointestinal (Abdomen): normal bowel sounds, soft, nontender, no hepatosplenomegaly Skin: facial laceration, left forehead - clean, sutures intact; scattered abrasions on face; ecchymoses resolving; dressing intact to left hip Psychiatric: A+Ox3, euthymic affect Orientation: alert Results & Data Laboratory Results Laboratory Results - last 24 hr 12/27/18 12/30/18 12/30/18 19:43 06:09 06:09 WBC 12.09 H RBC 2.72 L Hgb 7.8 L Hct 24.5 L MCV 90.1 MCH 28.7 MCHC 31.8 L RDW Std Deviation 48.7 H RDW Coeff of Cipriano 14.9 H Plt Count 173 MPV 9.3 Immature Gran % (Auto) 0.5 Neut % (Auto) 76.6 Lymph % (Auto) 10.5 [place] % (Auto) 10.8 Eos % (Auto) 1.3 Baso % (Auto) 0.3 Immature Gran # (Auto) 0.06 H Neut # (Auto) 9.25 H Lymph # (Auto) 1.27 [place] # (Auto) 1.31 H Eos # (Auto) 0.16 Baso # (Auto) 0.04 Sodium 137 Potassium 4.3 D Chloride 104 Carbon Dioxide 25 Anion Gap 8.0 BUN 54 H Creatinine 2.81 H D Est Cr Clr Drug Dosing 18.6 Est GFR ( Amer) 22.7 Est GFR (Non-Af Amer) 19.6 BUN/Creatinine Ratio 19.3 Glucose 92 Calcium 7.1 L Blood Type O Positive Blood Type Recheck Antibody Screen NEGATIVE Crossmatch See Detail 12/30/18 12/30/18 06:09 17:22 WBC RBC Hgb 9.3 L Hct 29.0 L MCV MCH MCHC RDW Std Deviation RDW Coeff of Cipriano Plt Count MPV Immature Gran % (Auto) Neut % (Auto) Lymph % (Auto) [place] % (Auto) Eos % (Auto) Baso % (Auto) Immature Gran # (Auto) Neut # (Auto) Lymph # (Auto) [place] # (Auto) Eos # (Auto) Baso # (Auto) Sodium Potassium Chloride Carbon Dioxide Anion Gap BUN Creatinine Est Cr Clr Drug Dosing Est GFR ( Amer) Est GFR (Non-Af Amer) BUN/Creatinine Ratio Glucose Calcium Blood Type Blood Type Recheck O Positive Antibody Screen Crossmatch _ (1) Acute head injury Encounter type: initial encounter Qualified Code(s): S09.90XA - Unspecified injury of head, initial encounter (2) CAD (coronary artery disease) Associated angina: without angina Coronary Disease-Associated Artery/Lesion type: [place] artery [place] vs. transplanted heart: [place] heart Qualified Code (s): I25.10 - Atherosclerotic heart disease of [place] coronary artery without angina pectoris (3) Hyperlipidemia Hyperlipidemia type: mixed hyperlipidemia Qualified Code(s): E78.2 - Mixed hyperlipidemia (4) Leukocytosis Leukocytosis type: unspecified Qualified Code(s): D72.829 - Elevated white blood cell count, unspecified (5) Facial laceration Encounter type: initial encounter Qualified Code(s): S01.81XA - Laceration without foreign body of other part of head, initial encounter (6) COPD (chronic obstructive pulmonary disease) COPD type: unspecified COPD Chronic bronchitis type: Emphysema type: Qualified Code(s): J44.9 - Chronic obstructive pulmonary disease, unspecified (7) Hypertension Hypertension type: essential hypertension Qualified Code(s): I10 - Essential (primary) hypertension (8) Closed left hip fracture Encounter type: initial encounter Fracture healing: Qualified Code(s): S72.002A - Fracture of unspecified part of neck of left femur, initial encounter for closed fracture
[2018-12-30] MEDS: AMLODIPINE BESYLATE 5 MG TAB PO SCH (20:21)
[2018-12-31 07:20] LABS: Hematocrit (blood only) 28.3 % (42-52); Hemoglobin 9.2 g/dL (14.0-18.0); Mean Corpuscular Hgb Conc 32.5 g/dL (32-36); Mean Corpuscular Volume 89.3 fL (80-100); Mean Platelet Volume 9.8 fL (7.4-10.4); Platelet Count 187 K/uL (130-400); RDW Coefficient of Variation 15.4 % (11.5-14.5); RDW Standard Deviation 49.8 fL (36.4-46.3); Red Blood Count 3.17 M/uL (4.7-6.1); White Blood Count 13.54 K/uL (4.8-10.8)
[2018-12-31 07:47] LABS: BUN Creatinine Ratio 24.3 (10-20); Calcium 7.6 mg/dl (8.5-10.1); Creatinine Clr Calc Pharmacy 19.4 ml/min; Est GFR (African American) 23.8; Est GFR (Non-African American) 20.6
--- NOTE | 2018-12-31 08:13 | Progress Note ---
DATE: 12/31/2018 SUBJECTIVE: An 83-year-old gentleman postop day 3 from a left cemented bipolar hip arthroplasty for fracture. His leg is doing pretty well. Some pain with weightbearing, but otherwise doing well. No new complaints. OBJECTIVE: VITAL SIGNS: Temperature 36.8. Vital signs stable. PHYSICAL EXAMINATION: GENERAL: Reveals a pleasant elderly male. He is sitting up in bed, looks reasonably comfortable. His face certainly looks a lot better. EXTREMITIES: Examination of the left leg reveals the dressing to be clean, dry and intact. Hip is located. Thigh is soft and supple. He is neurologically intact. LABORATORY DATA: Hemoglobin 9.2. Hematocrit 28.3. Electrolytes are pending. ASSESSMENT: An 83-year-old gentleman postop day 3 from a left cemented bipolar hip arthroplasty for fracture. He also has a stable pelvis fracture which is going to make this a bit more painful in the recovery period. PLAN: 1. DVT prophylaxis including thigh-high TEDs, SCDs, and would recommend aspirin twice a day if he can medically tolerate that. 2. PT/OT. Weight bear as tolerated. Certainly this recovery is going to be hampered a little bit by his pelvis fracture and therefore more painful, but still okay for him to weightbear as tolerated. 3. Medical management as per the medicine service. 4. Disposition. He is orthopedically stable for discharge any time medically stable. I need to see him back 2 weeks from surgery date. Any orthopedic questions can be directed at [phone].
[2018-12-31] MEDS: METOPROLOL SUCC 25MG EXT REL TAB PO SCH (08:36)
[2018-12-31] MEDS: FERROUS SULFATE 325 MG TAB PO SCH ×2 (08:36→19:53)
[2018-12-31] MEDS: ASPIRIN 81 MG ECTAB PO SCH ×3 (08:56→19:56)
--- NOTE | 2018-12-31 10:51 | Nephrology Progress Note ---
Date of Service December 31, 2018 Assessment & Plan (1) Chronic kidney disease, stage 4 (severe): -- Serum creatinine is near baseline of 2.6. No new Nephrology evaluation indicated at this time. Will sign off. Please call if further assistance is needed (2) Hyperkalemia: -- Hyperkalemia has resolved. -- Diet has been adjusted to include low potassium restriction (3) Closed left hip fracture: -- s/p L femur hemiarthroplasty 12/28/18 (4) Anemia: -- Hgb has improved to 9.2 following transfusion yesterday (5) Lung nodule: -- CT reports reviewed. 2.5 cm spiculated lesion in R apical lung concerning for malignancy. Patient will require Pulmonology evaluation once recovered from hip fracture Subjective Mr. Dejesus was seen and examined in his hospital room this morning. He currently denies angina, dyspnea or uremic symptoms. He voices no new medical concerns at this time. Physical Exam 2 Vital Signs (Past 24 Hours): Last Vital Signs Temp 36.8 C 12/31/18 07:13 Pulse 60 12/31/18 07:13 Resp 17 12/31/18 07:13 BP 116/62 12/31/18 07:13 Pulse Ox 95 12/31/18 07:13 Eyes: PERRL, conjunctivae normal, anicteric sclerae Neck: trachea midline, no thyromegaly Respiratory: normal respiratory effort, lungs clear to auscultation Cardiovascular: RRR, no murmur, no edema Gastrointestinal (Abdomen): normal bowel sounds, soft, nontender, no hepatosplenomegaly Skin: + turgor decreased Trauma: + evidence of skin trauma and + laceration (scalp) Results & Data Laboratory Results Laboratory Tests 12/31/18 12/31/18 06:53 06:53 WBC 13.54 H Hgb 9.2 L Hct 28.3 L Plt Count 187 Sodium 136 Potassium 4.0 Chloride 102 Carbon Dioxide 26 BUN 66 H Creatinine 2.70 H _ (1) Closed left hip fracture Encounter type: initial encounter Fracture healing: Qualified Code(s): S72.002A - Fracture of unspecified part of neck of left femur, initial encounter for closed fracture
--- NOTE | 2018-12-31 18:54 | Hospitalist Progress Note ---
Date of Service December 31, 2018 Assessment & Plan (1) Closed left hip fracture: POD #3, s/p ORIF by Dr. Luoie Nieves. Appreciate his assistance. DVT proph - asa 81mg BID. Pain control. Path without signs of cancer. PT, OT. Needs rehab. Vitamin D level was 22 in 10/2018 - supplement vitamin D daily. Present on Admission?: Yes (2) Facial laceration: s/p repair suture removal in about 5 days (3) COPD (chronic obstructive pulmonary disease): not in exacerbation at this time (4) Hypertension: continue home meds controlled (5) Hyperlipidemia: has declined statin in past (6) CAD (coronary artery disease): aspirin continue beta sylvia no ischemic symptoms at this time (7) Lung nodule: RUL, highly suspicious for lung ca uncertain if patient will want to pursue work-up and/or Rx has lost weight in the last year likely due to this lung ca (8) Chronic kidney disease, stage 4 (severe): baseline Cr about 2.5/2.6 superimposed ATN resolved creatinine now at baseline BMP In am for stability appreciate nephrology consultation (9) Hyperkalemia: 2nd to DESTINY -- resolved (10) Acute kidney injury: resolved (11) Acute blood loss anemia: 2nd to hip fracture and repair also bleeding from facial laceration probably contributed s/p 1 unit PRBCs tolerated well H/H stable today cbc in am for stability (12) Anorexia: likely due to lung cancer check b12, TSH in am to be complete start remeron 7.5mg at bedtime as I believe he is depressed and this may help w / appetite (13) DVT prophylaxis: asa 81mg bid PT, OT needs rehab patient is very sedentary (spends more than 1/2 the day in bed), has severe anorexia, etc. very poor candidate for acute rehab at [facility] I spoke with SW and feel that SNF level for rehab is more appropriate I then spoke with his son, Luca Dejesus, at [phone] Luca plans to move back to [place] soon from [place] I reviewed his dad's clinical course Explained my concerns about chest CT and lung cancer Discussed his severe anorexia Explained that trying to do 3 hours of rehab would likely be incredibly too taxing for his father He voiced understanding Plan is to try and help anorexia this weekend (remeron) referral to SNF Subjective patient reports he spends 12-14 hours in the bed at home each day does not do any physical activity appetite has been poor for months did not eat any breakfast today and for lunch took a few spoonfuls of applesauce only he blames his appetite on "lack of taste" has had weight loss - unknown amount - 30 pounds? Respiratory: no cough and no dyspnea Cardiovascular: no chest pain Gastrointestinal: no abdominal pain, no constipation and no diarrhea/loose stools Physical Exam 2 Vital Signs (Past 24 Hours): Last Vital Signs Temp 36.4 C L 12/31/18 15:44 Pulse 89 12/31/18 15:44 Resp 16 12/31/18 15:44 BP 150/70 H 12/31/18 15:44 Pulse Ox 92 12/31/18 15:44 Constitutional: + ill appearing and average body habitus; no acute distress ENMT: external ear and nose normal, oropharynx normal Respiratory: normal respiratory effort, lungs clear to auscultation Cardiovascular: Rate/Rhythm: regular rate and regular rhythm Heart Sounds: normal S1 and normal S2; no murmur Vessels: posterior tibial pulses present and dorsalis pedis pulses present Extremities: no edema Gastrointestinal (Abdomen): normal bowel sounds, soft, nontender, no hepatosplenomegaly Musculoskeletal: left hip karrie clean/dry/intact Skin: laceration, left forehead, with intact sutures; no cellulitis; resolving ecchymoses Psychiatric: Orientation: alert and oriented x 3 Affect: + depressed affect Results & Data Laboratory Results Laboratory Results - last 24 hr 12/31/18 12/31/18 06:53 06:53 WBC 13.54 H RBC 3.17 L Hgb 9.2 L Hct 28.3 L MCV 89.3 MCH 29.0 MCHC 32.5 RDW Std Deviation 49.8 H RDW Coeff of Cipriano 15.4 H Plt Count 187 MPV 9.8 Sodium 136 Potassium 4.0 Chloride 102 Carbon Dioxide 26 Anion Gap 8.0 BUN 66 H Creatinine 2.70 H Est Cr Clr Drug Dosing 19.4 Est GFR ( Amer) 23.8 Est GFR (Non-Af Amer) 20.6 BUN/Creatinine Ratio 24.3 H Glucose 90 Calcium 7.6 L _ (1) Closed left hip fracture Encounter type: initial encounter Fracture healing: Qualified Code(s): S72.002A - Fracture of unspecified part of neck of left femur, initial encounter for closed fracture (2) Facial laceration Encounter type: initial encounter Qualified Code(s): S01.81XA - Laceration without foreign body of other part of head, initial encounter (3) COPD (chronic obstructive pulmonary disease) COPD type: unspecified COPD Chronic bronchitis type: Emphysema type: Qualified Code(s): J44.9 - Chronic obstructive pulmonary disease, unspecified (4) Hypertension Hypertension type: essential hypertension Qualified Code(s): I10 - Essential (primary) hypertension (5) Hyperlipidemia Hyperlipidemia type: mixed hyperlipidemia Qualified Code(s): E78.2 - Mixed hyperlipidemia (6) CAD (coronary artery disease) Coronary Disease-Associated Artery/Lesion type: [place] artery [place] vs. transplanted heart: [place] heart Associated angina: without angina Qualified Code(s): I25.10 - Atherosclerotic heart disease of [place] coronary artery without angina pectoris
[2018-12-31] MEDS ORDERED: HYDROCODONE/ACETAMOPHEN 5/325MG TAB PO PRN (19:03)
[2018-12-31] MEDS: AMLODIPINE BESYLATE 5 MG TAB PO SCH (19:54)
[2018-12-31] MEDS: MIRTAZAPINE SOLTAB 15 MG PO SCH (19:54)
[2018-12-31] MEDS: CHOLECALCIFEROL 1,000 UNITS TAB PO SCH (22:03)
[2019-01-01 08:05] LABS: Hematocrit (blood only) 30.6 % (42-52); Hemoglobin 9.9 g/dL (14.0-18.0); Mean Corpuscular Hgb Conc 32.4 g/dL (32-36); Mean Corpuscular Volume 89.5 fL (80-100); Mean Platelet Volume 9.3 fL (7.4-10.4); Platelet Count 225 K/uL (130-400); RDW Standard Deviation 49.1 fL (36.4-46.3); Red Blood Count 3.42 M/uL (4.7-6.1); White Blood Count 12.79 K/uL (4.8-10.8)
[2019-01-01] MEDS: FERROUS SULFATE 325 MG TAB PO SCH ×2 (08:11→21:16)
[2019-01-01] MEDS: METOPROLOL SUCC 25MG EXT REL TAB PO SCH (08:11)
[2019-01-01] MEDS: ASPIRIN 81 MG ECTAB PO SCH ×2 (08:12→21:16)
[2019-01-01] MEDS: POLYETHYLENE (MIRALAX) 17 GM PACK PO SCH (08:12)
[2019-01-01] MEDS: CHOLECALCIFEROL 1,000 UNITS TAB PO SCH (08:30)
[2019-01-01 08:46] LABS: BUN Creatinine Ratio 27.7 (10-20); Calcium 7.9 mg/dl (8.5-10.1); Creatinine Clr Calc Pharmacy 20.6 ml/min; Est GFR (African American) 25.7; Est GFR (Non-African American) 22.1; Potassium 4.1 mmol/L (3.5-5.1)
--- NOTE | 2019-01-01 20:20 | Hospitalist Progress Note ---
Date of Service January 01, 2019 Assessment & Plan (1) Closed left hip fracture: POD #4, s/p ORIF by Dr. Louie Nieves. DVT proph - asa 81mg BID. Pain control. Path without signs of cancer. PT, OT. Needs rehab. Vitamin D level was 22 in 10/2018 - supplement vitamin D daily. (2) Facial laceration: s/p repair suture removal in about 5 days (3) COPD (chronic obstructive pulmonary disease): not in exacerbation at this time (4) Hypertension: continue home meds controlled (5) Hyperlipidemia: has declined statin in past (6) CAD (coronary artery disease): aspirin continue beta sylvia no ischemic symptoms since admission (7) Lung nodule: RUL, highly suspicious for lung ca poor candidate for work-up and treatment has lost weight in the last year likely due to this lung ca patient and son aware of probability of lung ca (8) Chronic kidney disease, stage 4 (severe): baseline Cr about 2.5/2.6 superimposed ATN resolved creatinine now at baseline BMP stable today (9) Hyperkalemia: 2nd to DESTINY -- resolved (10) Acute kidney injury: resolved (11) Acute blood loss anemia: 2nd to hip fracture and repair also bleeding from facial laceration probably contributed s/p 1 unit PRBCs tolerated well H/H stable today; start ferrous sulfate supplementation cbc again in am (12) Anorexia: likely due to lung cancer cont remeron 7.5mg HS eating was better today (13) DVT prophylaxis: asa 81mg bid PT, OT needs rehab - will go to SNF for such auth pending son, Luca Dejesus, at [phone] - updated 12/31/18 Luca plans to move back to [employer] soon from [facility] to transfer to med/surg today Subjective tolerated remeron well overnight ate a very good breakfast today only complaint is that of left hip pain no dyspnea, cough or chest pain tele with one brief run of nonsustained VT - no symptoms Constitutional: no fatigue Respiratory: no cough and no dyspnea Cardiovascular: no chest pain Gastrointestinal: no abdominal pain, no nausea and no vomiting Physical Exam 2 Vital Signs (Past 24 Hours): Last Vital Signs Temp 37.6 C H 01/01/19 17:55 Pulse 62 01/01/19 17:55 Resp 15 01/01/19 17:55 BP 103/52 L 01/01/19 17:55 Pulse Ox 91 01/01/19 17:55 Constitutional: average body habitus; no acute distress ENMT: external ear and nose normal, oropharynx normal Respiratory: normal respiratory effort, lungs clear to auscultation Cardiovascular: Rate/Rhythm: regular rate and regular rhythm Heart Sounds: normal S1 and normal S2; no murmur Vessels: posterior tibial pulses present and dorsalis pedis pulses present Extremities: no edema Gastrointestinal (Abdomen): normal bowel sounds, soft, nontender, no hepatosplenomegaly Skin: laceration left forehead - sutures intact, clean, no drainage. Left hip incision c/d/i. Psychiatric: Orientation: alert and oriented x 3 Affect: + depressed affect Results & Data Laboratory Results Laboratory Results - last 24 hr 01/01/19 01/01/19 01/01/19 07:50 07:50 07:50 WBC 12.79 H RBC 3.42 L Hgb 9.9 L Hct 30.6 L MCV 89.5 MCH 28.9 MCHC 32.4 RDW Std Deviation 49.1 H RDW Coeff of Cipriano 15.0 H Plt Count 225 MPV 9.3 Sodium 136 Potassium 4.1 Chloride 101 Carbon Dioxide 26 Anion Gap 9.0 BUN 70 H Creatinine 2.54 H Est Cr Clr Drug Dosing 20.6 Est GFR ( Amer) 25.7 Est GFR (Non-Af Amer) 22.1 BUN/Creatinine Ratio 27.7 H Glucose 90 Calcium 7.9 L Vitamin B12 1757 H TSH 0.813 _ (1) Closed left hip fracture Encounter type: initial encounter Fracture healing: Qualified Code(s): S72.002A - Fracture of unspecified part of neck of left femur, initial encounter for closed fracture (2) Facial laceration Encounter type: initial encounter Qualified Code(s): S01.81XA - Laceration without foreign body of other part of head, initial encounter (3) COPD (chronic obstructive pulmonary disease) COPD type: unspecified COPD Chronic bronchitis type: Emphysema type: Qualified Code(s): J44.9 - Chronic obstructive pulmonary disease, unspecified (4) Hypertension Hypertension type: essential hypertension Qualified Code(s): I10 - Essential (primary) hypertension (5) Hyperlipidemia Hyperlipidemia type: mixed hyperlipidemia Qualified Code(s): E78.2 - Mixed hyperlipidemia (6) CAD (coronary artery disease) Coronary Disease-Associated Artery/Lesion type: [place] artery [place] vs. transplanted heart: [place] heart Associated angina: without angina Qualified Code(s): I25.10 - Atherosclerotic heart disease of [place] coronary artery without angina pectoris
[2019-01-01] MEDS: AMLODIPINE BESYLATE 5 MG TAB PO SCH (21:15)
[2019-01-01] MEDS: MIRTAZAPINE SOLTAB 15 MG PO SCH (21:16)
[2019-01-02 06:51] LABS: Hematocrit (blood only) 30.5 % (42-52); Hemoglobin 9.9 g/dL (14.0-18.0); Mean Corpuscular Hgb Conc 32.5 g/dL (32-36); Mean Corpuscular Volume 89.2 fL (80-100); Mean Platelet Volume 9.3 fL (7.4-10.4); Platelet Count 221 K/uL (130-400); RDW Coefficient of Variation 15.1 % (11.5-14.5); RDW Standard Deviation 48.6 fL (36.4-46.3); Red Blood Count 3.42 M/uL (4.7-6.1); White Blood Count 10.77 K/uL (4.8-10.8)
[2019-01-02 07:30] LABS: BUN Creatinine Ratio 28.7 (10-20); Calcium 8.1 mg/dl (8.5-10.1); Creatinine Clr Calc Pharmacy 19.4 ml/min; Est GFR (African American) 23.8; Est GFR (Non-African American) 20.6; Potassium 4.1 mmol/L (3.5-5.1)
[2019-01-02] MEDS: ASPIRIN 81 MG ECTAB PO SCH ×2 (09:23→22:04)
[2019-01-02] MEDS: POLYETHYLENE (MIRALAX) 17 GM PACK PO SCH (09:23)
[2019-01-02] MEDS: FERROUS SULFATE 325 MG TAB PO SCH ×2 (09:24→22:03)
[2019-01-02] MEDS: CHOLECALCIFEROL 1,000 UNITS TAB PO SCH (09:24)
[2019-01-02] MEDS: METOPROLOL SUCC 25MG EXT REL TAB PO SCH (09:24)
--- NOTE | 2019-01-02 20:52 | Hospitalist Progress Note ---
Date of Service January 02, 2019 Assessment & Plan (1) Closed left hip fracture: POD #5 - s/p ORIF by Dr. Louie Nieves. DVT proph - asa 81mg BID. Pain control. Path without signs of cancer. PT, OT. Needs rehab. Vitamin D level was 22 in 10/2018 - supplement vitamin D daily. Will need f/u with Dr. Nieves about 7-10 days post-d/c. (2) Facial laceration: s/p repair suture removal in about 4 days (3) COPD (chronic obstructive pulmonary disease): not in exacerbation at this time patient still requiring NC O2 - small amount O2 sats are more reliable on his ear than fingers --- fingers are typically cyanotic before discharge would check the ear to see if O2 is really needed (4) Hypertension: continue home meds controlled (5) Hyperlipidemia: has declined statin in past (6) CAD (coronary artery disease): aspirin continue beta sylvia (7) Lung nodule: RUL, >3cm in size, growing over the last 2 years -- highly suspicious for lung ca poor candidate for work-up and treatment has lost weight in the last year likely due to this lung ca patient and son aware of probability of lung ca I asked patient today what he wants to do - he is unsure (8) Chronic kidney disease, stage 4 (severe): baseline Cr about 2.5/2.6 superimposed ATN resolved creatinine stable/at baseline BMP am (9) Hyperkalemia: 2nd to DESTINY -- resolved (10) Acute kidney injury: resolved (11) Acute blood loss anemia: 2nd to hip fracture and repair also bleeding from facial laceration probably contributed s/p 1 unit PRBCs tolerated well H/H stable today; cont ferrous sulfate supplementation (12) Anorexia: likely due to lung cancer cont remeron 7.5mg HS eating has been quite good this weekend patient seems depressed; sister stated he has "given up" in the last few months (13) DVT prophylaxis: asa 81mg bid PT, OT needs rehab - will go to SNF for such auth pending son, Luca Dejesus, at [phone] - updated 12/31/18 Luca plans to move back to [place] soon from [place] I also left message for him on 01/02 Subjective patient resting comfortably during my visit no complaints mild left hip pain only eating very well actually - >50% of breakfast today, 75% of lunch Respiratory: no cough and no dyspnea Cardiovascular: no chest pain Gastrointestinal: no abdominal pain Physical Exam 2 Vital Signs (Past 24 Hours): Last Vital Signs Temp 36.3 C L 01/02/19 15:07 Pulse 50 L 01/02/19 15:07 Resp 16 01/02/19 15:07 BP 95/51 L 01/02/19 15:07 Pulse Ox 90 01/02/19 15:07 Constitutional: + ill appearing and average body habitus; no acute distress ENMT: external ear and nose normal, oropharynx normal Respiratory: normal respiratory effort, lungs clear to auscultation Cardiovascular: Rate/Rhythm: regular rate and regular rhythm Heart Sounds: normal S1 and normal S2; no murmur Vessels: posterior tibial pulses present and dorsalis pedis pulses present Extremities: no edema Gastrointestinal (Abdomen): normal bowel sounds, soft, nontender, no hepatosplenomegaly Skin: dressing intact to left hip; laceration on left forehead clean; sutures intact; mild resolving ecchymoses on face Psychiatric: Orientation: alert and oriented x 3 Affect: + depressed affect Results & Data Laboratory Results Laboratory Results - last 24 hr 01/02/19 01/02/19 06:27 06:27 WBC 10.77 RBC 3.42 L Hgb 9.9 L Hct 30.5 L MCV 89.2 MCH 28.9 MCHC 32.5 RDW Std Deviation 48.6 H RDW Coeff of Cipriano 15.1 H Plt Count 221 MPV 9.3 Sodium 135 L Potassium 4.1 Chloride 102 Carbon Dioxide 24 Anion Gap 9.0 BUN 78 H Creatinine 2.70 H Est Cr Clr Drug Dosing 19.4 Est GFR ( Amer) 23.8 Est GFR (Non-Af Amer) 20.6 BUN/Creatinine Ratio 28.7 H Glucose 102 H Calcium 8.1 L _ (1) Closed left hip fracture Encounter type: initial encounter Fracture healing: Qualified Code(s): S72.002A - Fracture of unspecified part of neck of left femur, initial encounter for closed fracture (2) Facial laceration Encounter type: initial encounter Qualified Code(s): S01.81XA - Laceration without foreign body of other part of head, initial encounter (3) COPD (chronic obstructive pulmonary disease) COPD type: unspecified COPD Chronic bronchitis type: Emphysema type: Qualified Code(s): J44.9 - Chronic obstructive pulmonary disease, unspecified (4) Hypertension Hypertension type: essential hypertension Qualified Code(s): I10 - Essential (primary) hypertension (5) Hyperlipidemia Hyperlipidemia type: mixed hyperlipidemia Qualified Code(s): E78.2 - Mixed hyperlipidemia (6) CAD (coronary artery disease) Coronary Disease-Associated Artery/Lesion type: [place] artery [place] vs. transplanted heart: [place] heart Associated angina: without angina Qualified Code(s): I25.10 - Atherosclerotic heart disease of [place] coronary artery without angina pectoris
[2019-01-02] MEDS: AMLODIPINE BESYLATE 5 MG TAB PO SCH (22:04)
[2019-01-02] MEDS: MIRTAZAPINE SOLTAB 15 MG PO SCH (22:04)
[2019-01-03 08:16] LABS: BUN Creatinine Ratio 32.9 (10-20); Calcium 8.2 mg/dl (8.5-10.1); Creatinine Clr Calc Pharmacy 19.8 ml/min; Est GFR (African American) 24.5; Est GFR (Non-African American) 21.1; Potassium 4.4 mmol/L (3.5-5.1)
[2019-01-03] MEDS: METOPROLOL SUCC 25MG EXT REL TAB PO SCH (08:32)
[2019-01-03] MEDS: FERROUS SULFATE 325 MG TAB PO SCH ×2 (08:32→20:35)
[2019-01-03] MEDS: CHOLECALCIFEROL 1,000 UNITS TAB PO SCH (08:32)
[2019-01-03] MEDS: POLYETHYLENE (MIRALAX) 17 GM PACK PO SCH (08:33)
[2019-01-03] MEDS: ASPIRIN 81 MG ECTAB PO SCH ×2 (08:33→20:37)
--- NOTE | 2019-01-03 18:22 | Hospitalist Progress Note ---
Date of Service January 03, 2019 Assessment & Plan (1) Closed left hip fracture: POD #6 - s/p ORIF by Dr. Louie Nieves. DVT proph - asa 81mg BID. Pain control. Path without signs of cancer. PT, OT. Needs rehab. Vitamin D level was 22 in 10/2018 - supplement vitamin D daily. Check Vit D level again in the AM Will need f/u with Dr. Nieves about 7-10 days post-d/c. (2) Facial laceration: s/p repair suture removal in about 3 days (3) COPD (chronic obstructive pulmonary disease): not in exacerbation at this time patient still requiring NC O2 - small amount O2 sats are more reliable on his ear than fingers --- fingers are typically cyanotic before discharge would check the ear to see if O2 is really needed (4) Hypertension: continue home meds controlled (5) Hyperlipidemia: has declined statin in past (6) CAD (coronary artery disease): aspirin continue beta sylvia (7) Lung nodule: RUL, >3cm in size, growing over the last 2 years -- highly suspicious for lung ca poor candidate for work-up and treatment has lost weight in the last year likely due to this lung ca patient and son aware of probability of lung ca patient is unsure of what he wants to do moving forward-should continue to be addressed after discharge (8) Chronic kidney disease, stage 4 (severe): baseline Cr about 2.5/2.6 superimposed ATN resolved creatinine stable/at baseline BMP am (9) Hyperkalemia: 2nd to DESTINY -- resolved (10) Acute kidney injury: resolved (11) Acute blood loss anemia: 2nd to hip fracture and repair also bleeding from facial laceration probably contributed s/p 1 unit PRBCs tolerated well H/H stable; cont ferrous sulfate supplementation -follow CBC in AM (12) Anorexia: likely due to lung cancer cont remeron 7.5mg HS eating has improved but appetite remains low patient seems depressed; sister stated he has "given up" in the last few months (13) DVT prophylaxis: asa 81mg bid PT, OT needs rehab - awaiting bed-tomorrow is the plan son, Luca Dejesus, at [phone] Luca plans to move back to [place] soon from [place] Subjective Pt feels "out of it" today but just says he doesn't like the food here and is tired of being in the hospital. Denies lightheadedness, no nause, no CP or SOB, mild cough, no abd pain. Has some pain in left hip but is controlled Review of Systems All systems reviewed & are unremarkable except as noted in HPI & below Physical Exam 2 Vital Signs (Past 24 Hours): Last Vital Signs Temp 36.8 C 01/03/19 15:21 Pulse 78 01/03/19 15:21 Resp 20 01/03/19 15:21 BP 113/71 01/03/19 15:21 Pulse Ox 90 01/03/19 15:21 Constitutional: WD/WN, vitals as above Eyes: PERRL, conjunctivae normal, anicteric sclerae ENMT: external ear and nose normal, oropharynx normal Neck: trachea midline, no thyromegaly Respiratory: normal respiratory effort, lungs clear to auscultation Cardiovascular: RRR, no murmur, no edema Gastrointestinal (Abdomen): normal bowel sounds, soft, nontender, no hepatosplenomegaly Musculoskeletal: Extremities: + extremities abnormal to inspection (left hip with dressing in place c/d/i), no cyanosis and no clubbing Skin: no rashes, warm and dry Neurologic: moves all extremities and awake; no focal motor deficits Psychiatric: A+Ox3, euthymic affect Results & Data Laboratory Results 01/03/19 Range/Units 07:24 Sodium 136 (136-145) mmol/L Potassium 4.4 (3.5-5.1) mmol/L Chloride 103 (98-107) mmol/L Carbon Dioxide 26 (21-32) mmol/L Anion Gap 7.0 (3-11) BUN 87 H (7-18) mg/dl Creatinine 2.64 H (0.6-1.4) mg/dl Est Cr Clr Drug Dosing 19.8 ml/min Est GFR ( Amer) 24.5 Est GFR (Non-Af Amer) 21.1 BUN/Creatinine Ratio 32.9 H (10-20) Glucose 95 (70-99) mg/dl Calcium 8.2 L (8.5-10.1) mg/dl _ (1) Closed left hip fracture Encounter type: initial encounter Fracture healing: Qualified Code(s): S72.002A - Fracture of unspecified part of neck of left femur, initial encounter for closed fracture (2) Facial laceration Encounter type: initial encounter Qualified Code(s): S01.81XA - Laceration without foreign body of other part of head, initial encounter (3) COPD (chronic obstructive pulmonary disease) COPD type: unspecified COPD Chronic bronchitis type: Emphysema type: Qualified Code(s): J44.9 - Chronic obstructive pulmonary disease, unspecified (4) Hypertension Hypertension type: essential hypertension Qualified Code(s): I10 - Essential (primary) hypertension (5) Hyperlipidemia Hyperlipidemia type: mixed hyperlipidemia Qualified Code(s): E78.2 - Mixed hyperlipidemia (6) CAD (coronary artery disease) Coronary Disease-Associated Artery/Lesion type: [place] artery [place] vs. transplanted heart: [place] heart Associated angina: without angina Qualified Code(s): I25.10 - Atherosclerotic heart disease of [place] coronary artery without angina pectoris
[2019-01-03] MEDS: MIRTAZAPINE SOLTAB 15 MG PO SCH (20:35)
[2019-01-03] MEDS: AMLODIPINE BESYLATE 5 MG TAB PO SCH (20:35)
[2019-01-04 06:48] LABS: Basophils # (auto) 0.04 K/uL (0-0.2); Basophils % (auto) 0.3 %; Eosinophils # (auto) 0.23 K/uL (0-0.5); Eosinophils % (auto) 1.8 %; Hematocrit (blood only) 30.8 % (42-52); Hemoglobin 9.9 g/dL (14.0-18.0); Immature Granulocytes # (auto) 0.15 K/uL (0.00-0.02); Immature Granulocytes % (auto) 1.2 %; Lymphocytes # (auto) 1.16 K/uL (1.2-3.4); Lymphocytes % (auto) 9.3 %; Mean Corpuscular Hgb Conc 32.1 g/dL (32-36); Mean Corpuscular Volume 90.6 fL (80-100); Mean Platelet Volume 9.1 fL (7.4-10.4); Monocytes # (auto) 1.48 K/uL (0.11-0.59); Monocytes % (auto) 11.8 %; Neutrophils # (auto) 9.48 K/uL (1.4-6.5); Neutrophils % (auto) 75.6 %; Platelet Count 231 K/uL (130-400); RDW Coefficient of Variation 14.8 % (11.5-14.5); RDW Standard Deviation 48.2 fL (36.4-46.3); White Blood Count 12.54 K/uL (4.8-10.8)
[2019-01-04 07:22] LABS: BUN Creatinine Ratio 30.4 (10-20); Calcium 8.1 mg/dl (8.5-10.1); Est GFR (African American) 27.9; Est GFR (Non-African American) 24.1; Potassium 4.9 mmol/L (3.5-5.1)
[2019-01-04] MEDS: FERROUS SULFATE 325 MG TAB PO SCH (08:24)
[2019-01-04] MEDS: ASPIRIN 81 MG ECTAB PO SCH (08:24)
[2019-01-04] MEDS: CHOLECALCIFEROL 1,000 UNITS TAB PO SCH (08:25)
[2019-01-04] MEDS: POLYETHYLENE (MIRALAX) 17 GM PACK PO SCH (08:27)
[2019-01-04] MEDS: METOPROLOL SUCC 25MG EXT REL TAB PO SCH (09:26)
[2019-01-04] MEDS ORDERED: levoFLOXacin 500 MG TAB PO STA (11:20)
--- NOTE | 2019-01-04 11:37 | Discharge Summary ---
Date of Service January 04, 2019 Admission HPI Per Admitting Provider Patient is a an 83yo M PMH CKD IV, HTN, AAA s/p repair, MA s/p stenting, HLD, who presents today after a mechanical fall after slipping on his driveway. He notes the driveway was icy, and states he fell directly onto his left side/hip. He reports that after the fall, he tried to get up and fell again, this time falling forward and cutting open his head. Patient reports the head wound was worse than the hip originally, but now states that any movement of the legs is excruciating. Imaging in the ER revealed forehead contusion and acute displaced impacted left femoral neck fracture with probable acute mildly displaced fracture of L superior pubic ramus. Also found on imaging was enlargement of spiculated nodule in right lung upper lobe compared to CXR 2 years ago. Patient has over 120 pk yr smoking hx. Patient sees Dr. Thompson for his CKD IV. Per recent notes and confirmed by patient, he declines dialysis, refuses ASA and traditional meds such as Vit D, and treats his BP with metoprolol scheduled and amlodipine 5 maybe every other day, as he feels he needs it. He does check his BPs at home but does not take the amlodipine dependent on that number. Principal Diagnosis Left hip fracture s/p ORIF Discharge Exam Constitutional WD/WN, vitals as above Eyes PERRL, conjunctivae normal, anicteric sclerae ENMT external ear and nose normal, oropharynx normal Neck trachea midline, no thyromegaly Respiratory normal respiratory effort; no labored breathing Auscultation: + diminished lung sounds (throughout, no wheezes); no crackles Cardiovascular RRR, no murmur, no edema Gastrointestinal (Abdomen) normal bowel sounds, soft, nontender, no hepatosplenomegaly Musculoskeletal Extremities: + extremities abnormal to inspection (left hip with dressing in place c/d/i), no cyanosis and no clubbing Skin no rashes, warm and dry Neurologic moves all extremities and awake; no focal motor deficits Psychiatric A+Ox3, euthymic affect Discharge Data Allergies Allergy/AdvReac Type Severity Reaction Status Date / Time No Known Allergies Allergy Verified 12/27/18 19:27 Consultations 12/27/18 19:31 ED Decision to Admit Stat 12/27/18 22:21 Consult Cardiology Routine Consult Case Management - Discharge Planning Routine Consult Nephrology Routine Consult Orthopedic Surgery Stat 12/28/18 18:16 Consult Case Management - Discharge Planning Routine Procedures Performed Operation Date: 12/28/18 07:20 Actual Procedures p Left Hip Hemiarthroplasty(Left) - Louie Nieves MD Ordered Studies 12/27/18 17:18 CT cervical spine wo con Stat CT facial bones wo con Stat CT head/brain wo con Stat 12/28/18 02:44 CT chest wo con Routine Hip xray CXR Femur xray Hospital Course (1) Closed left hip fracture: POD #7 - s/p ORIF by Dr. Louie Nieves. DVT proph - asa 81mg BID x 6 weeks total Pain control with tylenol only-not even requiring anything Path without signs of cancer. PT, OT. Needs rehab. F/u with Ortho within 1 week Vitamin D level was 22 in 10/2018, now 19 - supplement vitamin D daily and increase dose to 3000Iunits daily. (2) Facial laceration: s/p repair suture removal in about 2 days (3) COPD (chronic obstructive pulmonary disease): With acute hypoxic respiratory failure not in exacerbation at this time, but is having slightly productive cough, WBC count up to 12k on day of discharge as below patient still requiring NC O2 - small amount O2 sats are more reliable on his ear than fingers --- fingers are typically cyanotic (4) Hypertension: continue home meds controlled (5) Hyperlipidemia: has declined statin in past (6) CAD (coronary artery disease): aspirin continue beta sylvia (7) Lung nodule: RUL, >3cm in size, growing over the last 2 years -- highly suspicious for lung ca poor candidate for work-up and treatment has lost weight in the last year likely due to this lung ca patient and son aware of probability of lung ca patient is unsure of what he wants to do moving forward-should continue to be addressed after discharge (8) Chronic kidney disease, stage 4 (severe): baseline Cr about 2.5/2.6 superimposed ATN resolved creatinine stable/at baseline Follow BMP periodically (9) Hyperkalemia: 2nd to DESTINY -- resolved -should follow low K+ diet (10) Acute kidney injury: resolved (11) Acute blood loss anemia: 2nd to hip fracture and repair also bleeding from facial laceration probably contributed s/p 1 unit PRBCs tolerated well H/H stable at 9; cont ferrous sulfate supplementation -follow CBC in 1 week (12) Anorexia: likely due to lung cancer Started Remeron 7.5mg HS eating has improved but appetite remains low, consider titrating up on dose of Remeron in 1-2 weeks patient seems depressed; sister stated he has "given up" in the last few months (13) Fracture, nasal: age-indeterminate left nondisplaced nasal bone fracture seen on CT face on admission no treatment indicated (14) Leukocytosis: WBC count mildly elevated throughout stay, then down to 10k then back up to 12k on day of discharge. No symptoms other than mildly productive cough. Has been afebrile -start Levaquin 500mg po x 1 now nad then 250mg po once daily x total 7 days for acute bronchitis given h/o COPD -follow CBC in 1 week (15) Bronchitis: Levaquin, renally dosed as above (16) DVT prophylaxis: asa 81mg bid PT, OT needs rehab - placement tomorrow son, Luca Dejesus, at [phone] Luca plans to move back to [place] soon from [place] Total Time Total Time Spent Total Time Spent (In Minutes): >30 min Total Time Includes: Examination of the Patient, Discharge Planning and Medication Reconciliation Discharge Plan Discharge Items Patient Disposition: Transfer Nursing Home Fac Reason For Visit: HIP FRACTURE, HEAD LACERATION Discharge Diagnosis: Left Hip Arthroplasty for fracture Stable Pelvis Fracture Condition: Fair Discharge Goals: Decrease discomfort, Improve disease control and Therapeutic intervention Activity: Per 'Additional Instructions' section Activity Comment: Total Hip Precautions Weightbearing: Left weightbearing Weightbearing Comment: Weightbear as tolerated obeying hip precautions Non-emergency contact: Primary Care Provider Call non-emergency contact if: you have any medication questions, your symptoms worsen, your pain is not controlled and your temperature is above 101 Follow-up/Referrals: Louie Nieves MD [Surgeon] - (Return to Orthopedic clinic 2 weeks from date of surgery.) Diet: Heart Healthy and Low Potassium (2gm) Addtl Provider Instructions: Mr. Dejesus was admitted for a hip fracture which was repaired. He also had a small laceration to the forehead and needs his sutures removed on 01/06/19. He had a mild leukocytosis on the day of discharge and complaints of a mildly productive cough but was afebrile. He has COPD and a lung nodule which has not been worked up yet; he is undecided as to whether he wants to further pursue a workup. He was started on po Levaquin and should finish out a course of this x 7 days. His renal function should be watched carefully as he has CKD Stage IV. Ortho follow up as below. ACTIVITY RECOMMENDATIONS: Physical Therapy: * Aggressive physical therapy is not usually needed. You will learn to take care of yourself safely and walk. * Follow the "Hip Precautions Instructions." * In some cases, the social media marketing specialist at the hospital will arrange to have a therapist come to your house for the first couple of weeks to help you learn these skills. * You need to practice on your own or with the help of a family member as needed. * When you learn these skills, most of the therapy can be done on your own. Home Exercise: * You were shown a series of exercises in the hospital. Do these exercises three to four times each day including the exercises you were shown in physical therapy. Walking: * Get up and walk several times each day. For the first four weeks, try not to stand or walk for more than one hour at a time. If you do stand or walk for more than one hour, you will not hurt anything, but your leg will likely swell. * As you feel comfortable, you may change from the walker or crutches to a cane and then to independent walking. MEDICATIONS: "VERY IMPORTANT TO READ AND REVIEW" Pain: * The immediate post-operative period after hip replacement surgery is often quite painful. * You are given a prescription for pain medicine. You should take it, as directed, when you need it, especially before physical therapy and before going to bed. Pain that interferes with sleep is very common and can last several months. * You will likely need pain medicine for the first two to four weeks. It will not stop all of the pain. The pain will lessen and as you feel better, you may change to milder pain medicine such as Tylenol. * The most common side effects of pain medicine are nausea and constipation, so don't take more than you need. SPECIAL CARE INSTRUCTIONS: TEDs/Elastic Stockings: * The white elastic stockings help limit swelling and prevent blood clots from forming in your legs. The more you wear them, the more they work. * Wear them for six weeks. Prevention of Infection: * Take antibiotics one hour before any dental cleaning, dental work, urological procedure, gastrointestinal procedure or any invasive surgery in order to prevent your new joint from getting infected. * You may get the antibiotics from the doctor performing the procedure or you may call our office at before and we will call in a prescription to the pharmacy of your choice. Things to Watch For: * Drainage from the incision site that occurs more than one week after your surgery. * Severely increased leg pain or swelling. * Increased redness at the incision site. * Fever above 102 degrees Fahrenheit. * Unusual chest pain or shortness of breath. * Unusual pain or burning with urination. Call [facility] at with any of the above problems or if you have any questions about your medicines or recovery. FOLLOW UP VISIT: Make an appointment to see your doctor for approximately two weeks after surgery for a progress check and staple removal by calling the office at . Prescriptions: New acetaminophen [Mapap (acetaminophen)] 325 mg Tablet 650 mg PO Q4H PRN (Reason: pain) Qty: 30 RF: 0 ferrous sulfate 325 mg (65 mg iron) Tablet,Delayed Release (Dr/Ec) 325 mg PO BID Qty: 60 RF: 0 polyethylene glycol 3350 [Miralax] 17 gram Powder In Packet 17 g PO DAILY Qty: 30 RF: 0 aspirin [Ecotrin Low Strength] 81 mg Tablet,Delayed Release (Dr/Ec) 81 mg PO BID 35 Days Qty: 70 RF: 0 mirtazapine 15 mg Tablet,Disintegrating 7.5 mg PO HS Qty: 15 RF: 0 cholecalciferol (vitamin D3) [Vitamin D3] 1,000 unit Tablet 3,000 units PO QAM Qty: 90 RF: 0 levofloxacin 250 mg tablet 250 mg PO DAILY Qty: 6 RF: 0 Continue metoprolol succinate 25 mg tablet extended release 24 hr 25 mg PO QAM RF: 0 Changed amlodipine 5 mg tablet 5 mg PO QPM Qty: 0 RF: 0 Stand-Alone Forms: My [facility] Discharge Orders: Discharge Order (Routine); Ordered 01/04/19 Ordered By: Shivani Herbert Skilled Items Patient informed of condition?: Yes DNR: Yes Discharge Level of Care: Skilled Communicable Disease: No Discharge Prognosis: Improving Admission Data Admit Date/Time: 12/27/18 21:03 Attending Provider: Shivani Herbert Admit Provider: Latonia Davalos Primary Care Provider: Ruby Tilley Other Providers: Alfonso Covarrubias ; Louie Nieves ; Jaiden Gallardo Service: Medical Other Interventions: Discharge Summary Assessment (RN) Last Done: 01/04/19 10:29 Pending Studies at Discharge: No
[2019-01-05] MEDS ORDERED: levoFLOXacin 500 MG TAB PO SCH (11:00)
== END 2019-01-04 11:58 | DRG 956 ==
LOC: MERGE 16:09 → ED 16:09 → SUATTDRO 21:03 → 3W 21:03 → 2S 12-28 16:23 → 3W 01-01 18:05